=== PATIENT | female | born 1940 ===

== ENCOUNTER 2023-04-12 14:48 | Inpatient (IN) | payer MEDICARE, MEDICAID, SELFPAY ==
[2023-04-12 14:56] VITALS: BP 136/74; PULSE 55; O2SAT 95
[2023-04-12 15:02] VITALS: BP 151/118; PULSE 116; RESP 16; TEMP 37.2; O2SAT 95; BMI 25.4
--- NOTE | 2023-04-12 15:03 | ED_ITS ---
HPI - Psych General Chief Complaint: Psychiatric Symptoms Stated Complaint: SECTION 12 FROM SNF Time Seen by Provider: 04/12/23 15:01 Source: patient, EMS, RN notes reviewed and old records reviewed Mode of arrival: EMS Limitations: other History of Present Illness HPI Narrative: 82-year-old female with a past medical history of hypertension, diabetes, schizoaffective disorder presenting to the ED via EMS from SNF on Section 12 for increased paranoia, medication noncompliance, delusions, and agitation. Per Sec tion 12 patient recently diagnosed with UTI, has been refusing antibiotic, refusing to eat and drink, pacing, insomnia, and thinks staff is trying to kill her. Per EMS patient also with recent fall, had katrina placed to scalp, denies recent falls. History limited due to patient's acute mental status. Related Data Allergies Allergy/AdvReac Type Severity Reaction Status Date / Time latex Allergy Unknown Verified 04/12/23 15:01 Sulfa (Sulfonamide Allergy Unknown Verified 04/12/23 15:01 Antibiotics) Review of Systems Review of Systems: ROS limited due to patient's acute mental status Yes all other systems are reviewed and are negative Constitutional: Constitutional: Reports as per HPI [facility] Past Medical History Attestation statement: The following information was validated with the patient. 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, unspecified Generalized muscle weakness Hyperlipidemia Hypertension Insomnia correction (current) use of insulin Need for assistance with personal care Schizophrenia, unspecified Type 2 diabetes mellitus Unspecified dementia, mild, with anxiety Unspecified dementia, severe, with psychotic disturbance Vitamin D deficiency Social History Social History Advance Directives: Yes Advance Directives Information Provided: No Advance Directives on File: No Physical Exam Vital Signs: Vital Signs: Last Vital Signs Temp 99 F 04/12/23 15:02 Pulse 116 H 04/12/23 15:02 Resp 16 04/12/23 15:02 BP 151/118 H 04/12/23 15:02 Pulse Ox 95 04/12/23 15:02 O2 Del Method Room Air 04/12/23 15:02 BMI result Body Mass Index 25.4 Const: General: cooperative, no acute distress and alert Orientation/consciousness: oriented to person and oriented to place HEENT: Other: Healing laceration to posterior scalp with 1 stable intact, healing appropriately, no surrounding erythema, fluctuance or induration Head: Yes normal to inspection and Yes atraumatic Ears: hearing grossly normal bilaterally General nose exam: Normal external nose present Face and sinus: Yes normal facial exam Eyes: General: appearance normal, both eyes and all related structures Pupils: Equal, round and reactive pupils present EOM: EOMs intact bilaterally Neck: Neck: Yes normal visual inspection and Yes no meningeal signs Resp: Effort & Inspection: normal respiratory effort and no respiratory distress Auscultation: clear to auscultation bilaterally Cardio: Rate: regular rate Heart sounds: S1 normal heart sound present and S2 normal heart sound present GI: Inspection: Yes normal to inspection Palpation (GI): Soft to palpation, nontender, no guarding and not rigid Skin: Rashes: no rashes Wounds: no wounds Neuro: General: oriented to person, oriented to place, tone normal, moves all extremities, no meningeal signs and CN's II-XI intact bilaterally Cranial nerves: Yes Equal, round and reactive pupils present Gait exam (Neuro): Normal gait present Extrem: General: Yes normal to inspection Psych: Other: Pacing Affect: Anxious affect present Attitude: Guarded attititude/behavior present Thought content: Paranoid delusions present and delusions Insight: Poor insight present (Psych) Judgement: Poor judgement present (Psych) Course Course Course Narrative: -leukocytosis of 11.4. BUN of 35, no available priors to compare > will encourage p.o. intake. Labs otherwise reassuring -1630--ED care transferred to FRANCIS Tapia pending UA and CARE team consult Medical Decision Making Medical Decision Making MDM Narrative: 82-year-old female with a past medical history of hypertension, diabetes, schizoaffective disorder presenting to the ED via EMS from SNF on Section 12 for increased paranoia, medication noncompliance, delusions, and agitation. On exam hypertensive, tachycardic, pacing, agitated/guarded and paranoid. Physical exam as above with stable intact to posterior scalp wound which is appropriately healing. Low suspicion for severe sepsis, vital sign abnormalities likely from medication noncompliance/increased agitation. Rule out metabolic infectious etiologies Plan: Labs, UA, tox screen, CARE team consult Please refer to course for remaining clinical decision making, interpretation of labs/imaging results, and discussions with consultants and/or family members. Differential Diagnosis Differential Diagnoses: The differential diagnosis associated with the presentation includes As above Admission/Observation Consideration of admission/observation: Escalation of care including admission/observation considered Consult Healthcare Provider Management of the patient was discussed with: Behavioral Health Provider Lab Data [facility] Lab Attestation statement: I reviewed the patient's lab results. 04/12/23 15:40 04/12/23 15:40 Labs: Lab Results 04/12/23 04/12/23 04/12/23 Range/Units 15:40 15:40 15:40 WBC 11.4 H (4.8-10.8) X10*3/uL RBC 4.26 (4.20-5.50) X10*6/uL Hgb 12.9 (12.0-16.0) g/dl Hct 39.7 (37.0-47.0) % MCV 93.2 (80.0-98.0) fL MCH 30.3 (27.0-33.0) pg MCHC 32.5 (31.0-35.0) g/dl RDW 13.3 (11.0-16.0) % Plt Count 223 (160-400) X10*3/uL MPV 9.9 (9.4-12.3) fL Immature Gran % (Auto) 0.3 (0.0-0.4) % Neut % (Auto) 72.7 (45-73) % Lymph % (Auto) 14.9 L (20-40) % [place] % (Auto) 11.6 H (2-11) % Eos % (Auto) 0.1 (0-4) % Baso % (Auto) 0.4 (0-2) % Lymph # (Auto) 1.7 (1.2-4.9) X10*3/uL [place] # (Auto) 1.3 H (0.1-1.2) X10*3/uL Eos # (Auto) 0.0 (0.0-0.4) X10*3/uL Baso # (Auto) 0.0 (0.0-0.2) X10*3/uL Abs Immat Gran (auto) 0.03 (0.00-0.03) X10*3/uL Absolute Neuts (auto) 8.3 (2.0-8.3) x10*3/uL Absolute Nucleated RBC 0.000 (0.0-0.012) X10*3/uL Nucleated RBC % (auto) 0.0 (0.0-0.2) /100WBC Sodium 143 (135-145) mmol/L Potassium 4.6 (3.3-5.1) mmol/L Chloride 110 H (96-108) mmol/L Carbon Dioxide 20 L (22-29) mmol/L Anion Gap 18 (12-20) BUN 35 H (9-16) mg/dL Creatinine 1.38 (0.5-1.4) mg/dL Estim Creat Clear Calc 26.1 Estimated GFR 37 Random Glucose 165 H (60-115) mg/dL Calcium 10.4 H (8.4-10.2) mg/dL Magnesium 2.1 (1.6-2.6) mg/dL Total Bilirubin 1.1 H (0.0-1.0) mg/dL Direct Bilirubin 0.3 (0.0-0.5) mg/dL AST 55 H (5-31) U/L ALT 17 (0-31) U/L Alkaline Phosphatase 66 (39-117) U/L Total Protein 7.7 (6.5-8.0) g/dL Albumin 4.4 (3.5-5.0) g/dL COVID-19 (BEST) Negative (Negative) COVID-19 Clin Com See Note Radiology Impression Discussion of test interpretation with radiology: I have reviewed the radiologist's reading. Independent Historian Clinical information obtained from an independent historian. History obtained from or confirmed by: EMS and Other (Section 12 paperwork/SNF) External Record Review External record reviewed: Inpatient record, Office record, Outpatient record, Prior outpatient labs, Prior outpatient radiology, Primary care record and Outside ED record Tests considered The following testing was considered but not selected: As above Prescription Management I considered prescription management with: Antibiotic Chronic Conditions Patient?s care impacted by: Other (Schizoaffective) Discharge Plan Discharge Clinical Impression: Acute psychosis Patient Disposition: Still a Patient Interventions: [place]-Suicide Risk Severity Scale Last Done: 04/12/23 15:23
[2023-04-12 15:50] LABS: MANUAL DIFF FLAG NO
[2023-04-12 15:57] LABS: Basophils Percent Auto 0.4 % (0-2); Eosinophils Percent Auto 0.1 % (0-4); Hematocrit 39.7 % (37.0-47.0); Hemoglobin 12.9 g/dl (12.0-16.0); Imm Gran Abs Auto 0.03 X10*3/uL (0.00-0.03); Imm Gran Pct Auto 0.3 % (0.0-0.4); Lymphocytes Absolute Auto 1.7 X10*3/uL (1.2-4.9); Lymphocytes Percent Auto 14.9 % (20-40); Mean Corpuscular HGB Conc 32.5 g/dl (31.0-35.0); Mean Corpuscular Hemoglobin 30.3 pg (27.0-33.0); Mean Corpuscular Volume 93.2 fL (80.0-98.0); Mean Platelet Volume 9.9 fL (9.4-12.3); Monocytes Absolute Auto 1.3 X10*3/uL (0.1-1.2); Monocytes Percent Auto 11.6 % (2-11); Neutrophils Absolute Auto 8.3 x10*3/uL (2.0-8.3); Neutrophils Percent Auto 72.7 % (45-73); Platelet Count 223 X10*3/uL (160-400); Red Blood Count 4.26 X10*6/uL (4.20-5.50); Red Cell Distribution Width 13.3 % (11.0-16.0); White Blood Count 11.4 X10*3/uL (4.8-10.8)
[2023-04-12 16:05] LABS: Alanine Aminotransferase 17 U/L (0-31); Albumin Level 4.4 g/dL (3.5-5.0); Alkaline Phosphatase 66 U/L (39-117); Anion Gap 18 (12-20); Aspartate Amino Transferase 55 U/L (5-31); Bilirubin Direct 0.3 mg/dL (0.0-0.5); Bilirubin Total 1.1 mg/dL (0.0-1.0); Blood Urea Nitrogen 35 mg/dL (9-16); Calcium 10.4 mg/dL (8.4-10.2); Carbon Dioxide 20 mmol/L (22-29); Chloride 110 mmol/L (96-108); Creatinine Clr Calc Pharmacy 26.1; Estimated Glomerular Filt Rate 37; Glucose Random 165 mg/dL (60-115); Magnesium 2.1 mg/dL (1.6-2.6); Potassium 4.6 mmol/L (3.3-5.1); Sodium 143 mmol/L (135-145); Total Protein 7.7 g/dL (6.5-8.0)
[2023-04-12 16:06] LABS: IDNOW Serial# BCCEAD1C
[2023-04-12 16:07] LABS: COVID-19 Test Negative (Negative)
--- NOTE | 2023-04-12 16:41 | PC.NURSE ---
PT REQUIRING FREQUENT REMINIDING, ENCOURAGEMENT TO DRINK FLUIDS. CONTINUES TO PACE QUIETLY.
--- NOTE | 2023-04-12 16:51 | PHA.MEDREC ---
Pharmacy Consult ? Medication Reconciliation Pharmacy has completed the medication reconciliation. Patient came from [facility] with a medication list. Erika Giraldo, MaritaD
[2023-04-12 20:26] LABS: Appearance Urine Cloudy; Color Urine Dark Yellow; Glucose Urine UA Negative (Negative); Leukocyte Esterase Urine Large (3+) (Negative); Nitrite Urine Negative (Negative); PH 5.5 (5.0-9.0); Specific Gravity - Urine 1.025 (1.005-1.025); UMIC TRIGGER UACC YES; Urine Blood Negative (Negative); Urine Ketones Trace mg/dL (Negative); Urine Protein 30 (1+) mg/dL (Neg-Trace)
[2023-04-12 20:36] LABS: Amphetamine Screen Urine Not Detected (Not Detect); Barbiturates, Urine Not Detected (Not Detect); Benzodiazepines Screen Urine Not Detected (Not Detect); Cannabinoid Screen Urine Not Detected (Not Detect); Cocaine Screen Urine Not Detected (Not Detect); Opiate Screen Urine Not Detected (Not Detect); Phencyclidine Screen Urine Not Detected (Not Detect)
[2023-04-12 20:40] LABS: Fentanyl, urine Not Detected (Not Detect)
[2023-04-12 20:46] LABS: Bacteria Urine Trace (None Seen); UACC Culture Trigger YES; WBC Urine >50 /HPF (0-5)
[2023-04-12] MEDS: clonazePAM 0.5 MG TABLET PO (21:43)
[2023-04-12] MEDS: Divalproex Sodium 250 MG TABLET.DR PO (21:43)
[2023-04-12] MEDS: cephALEXin 500 MG CAPSULE PO ×2 (21:43→22:03)
[2023-04-12] MEDS: traZODone HCL 50 MG TABLET 150 MG PO ×2 (21:43→22:03)
[2023-04-12] MEDS: QUEtiapine Fumarate 50 MG TABLET 150 MG PO ×2 (21:43→22:02)
[2023-04-12] MEDS: lamoTRIgine 25 MG TABLET 75 MG PO ×2 (21:43→22:03)
[2023-04-12 21:55] LABS: Glucose, Whole Blood 156 mg/dL (60-115)
[2023-04-12] MEDS: Pravastatin Sodium 40 MG TABLET PO (22:02)
[2023-04-12 22:17] VITALS: BP 158/97; PULSE 118; RESP 22; TEMP 36.4; O2SAT 96
[2023-04-12] MEDS: Insulin Glargine,Hum.rec.anlog 100 UNIT/ML 10 ML VIAL 6 UNIT SUBCUT (22:17)
[2023-04-13 00:02] VITALS: BP 154/86; PULSE 109; RESP 15; TEMP 36.4; O2SAT 98
--- NOTE | 2023-04-13 06:25 | PC.NURSE ---
Patient up whole night sat in hallway chair, no distress observed/reported, behavior non concerning, hypo-verbal, medication compliant but needs queuing, POC at 2149 was 156 scheduled Lantus 6 units administered as ordered, Patient + UTI being treated with Keflex 500 mg QID, gait slow and unsteady, patient was seen by care team, disposition pending psych consult, will continue to monitor.
[2023-04-13 07:32] VITALS: BP 127/77; PULSE 100; RESP 20; TEMP 36.3; O2SAT 97
--- NOTE | 2023-04-13 07:59 | ECG_ITS ---
Test Reason : over 50 Blood Pressure : / mmHG Vent. Rate : 105 BPM Atrial Rate : 105 BPM P-R Int : 138 ms QRS Dur : 090 ms QT Int : 370 ms P-R-T Axes : 016 -40 098 degrees QTc Int : 489 ms Sinus tachycardia with occasional Premature ventricular complexes Left axis deviation Left ventricular hypertrophy with repolarization abnormality ( R in aVL , [place] product ) Abnormal ECG No previous ECGs available Referred By: Jordan Reddy Electronically Signed By:Bryce Mccoy
--- NOTE | 2023-04-13 08:26 | MHC.EDTECH ---
staff have asked pt multiple times this morning if willing to change brief, pt refused all those times. staff have educated pt on the importance of proper hygiene, pt still continues to refuse corinne care. rn aware.
--- NOTE | 2023-04-13 08:39 | PC.NURSE ---
Physician Obs. status ordered
--- NOTE | 2023-04-13 08:46 | PC.NURSE ---
Per pt.'s MAR documentation, pt.'s 04/12/23 2100 doses of Metoprolol, Quetiapine, and Lamotrigine were documented incorrectly under the 04/13/23 0900 doses of those same medications.
[2023-04-13] MEDS: cephALEXin 500 MG CAPSULE PO ×4 (08:52→20:51)
[2023-04-13] MEDS: diphenhydrAMINE HCl 12.5 MG/5 ML LIQUID PO ×2 (08:52→16:56)
[2023-04-13] MEDS: Cholecalciferol (Vitamin D3) 25 MCG TABLET PO (08:53)
[2023-04-13] MEDS: Metoprolol Succinate ER 25 MG TAB.ER.24H PO (08:53)
[2023-04-13] MEDS: QUEtiapine Fumarate 50 MG TABLET 150 MG PO ×2 (08:54→20:51)
[2023-04-13] MEDS: lamoTRIgine 25 MG TABLET 75 MG PO (08:55)
[2023-04-13 09:55] LABS: Ammonia 34 umol/L (13-55)
[2023-04-13] MEDS: 0.9 % Sodium Chloride 500 ML IV (12:12)
--- NOTE | 2023-04-13 12:25 | PM.PSYCN ---
History of Present Illness Date of Service: 04/13/2023 Chief Complaint: SECTION 12 FROM SNF Reason for Consult: agitation and paranoid Requesting physician: Jordan Reddy Discussed with referring provider: Yes Sources of Information: patient interviewed, chart reviewed and crisis/core team assessment reviewed Additional Sources of Information: HCP invoked- Joy daughter. Jt in the chart- pt is DNR/DNI. HPI Narrative: Mrs. Gandara is a 82 year-old with hx of schizophrenia and dementia who lives in SNF [place] brought to [facility] on section 12a due to increase agitation paranoid towards staff thinking that they are poisoning her, refusing to eat and take medications. In the ED, cbc with slightly elevated WBC 11. CMP with elevation of BUN 35, Cr 1.38. Slight elevation of AST. UA does show infection she is on Cephalexin 500mg po QID. Utox is negative. Pt seen in the ED. She is not eating minimal fluid intake but has taken medications since she has been on the unit. Pt mostly mute. Pt upset for being here but not oriented to place, situation. Not providing much information. Significant delayed in response rate. Collateral information gathered from the mother who reports pt has long hx of schizophrenia since 1973 and usually theme of paranoid delusions of being poisoned. Daughter reports currently pt presenting with usual exacerbation of psychiatric illness. Past Psychiatric History: Inpt: multiple in the past. OP: through [place] SNF. Past medication trials: olanzapine (became more confused and over sedated), seroquel, depakote. 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, unspecified Generalized muscle weakness Hyperlipidemia Hypertension Insomnia detention (current) use of insulin Need for assistance with personal care Schizophrenia, unspecified Type 2 diabetes mellitus Unspecified dementia, mild, with anxiety Unspecified dementia, severe, with psychotic disturbance Vitamin D deficiency Diagnostics Vital Signs (24Hr): Vital Signs - 24 hr 04/12/23 15:02 04/12/23 22:17 04/13/23 00:02 Temperature 99 F 97.5 F 97.5 F Pulse Rate 116 H 118 H 109 H Respiratory Rate 16 22 H 15 Blood Pressure 151/118 H 158/97 H 154/86 H Pulse Oximetry 95 96 98 Oxygen Delivery Method Room Air Room Air Room Air 04/13/23 07:32 Temperature 97.3 F Pulse Rate 100 Respiratory Rate 20 Blood Pressure 127/77 Pulse Oximetry 97 Oxygen Delivery Method Room Air BMI result Body Mass Index 25.4 Labs 04/12/23 15:40 04/12/23 15:40 Labs: Laboratory Results - last 48 hr 04/12/23 04/12/23 04/12/23 15:40 15:40 15:40 WBC 11.4 H RBC 4.26 Hgb 12.9 Hct 39.7 MCV 93.2 MCH 30.3 MCHC 32.5 RDW 13.3 Plt Count 223 MPV 9.9 Immature Gran % (Auto) 0.3 Neut % (Auto) 72.7 Lymph % (Auto) 14.9 L [place] % (Auto) 11.6 H Eos % (Auto) 0.1 Baso % (Auto) 0.4 Lymph # (Auto) 1.7 [place] # (Auto) 1.3 H Eos # (Auto) 0.0 Baso # (Auto) 0.0 Abs Immat Gran (auto) 0.03 Absolute Neuts (auto) 8.3 Absolute Nucleated RBC 0.000 Nucleated RBC % (auto) 0.0 Sodium 143 Potassium 4.6 Chloride 110 H Carbon Dioxide 20 L Anion Gap 18 BUN 35 H Creatinine 1.38 Estim Creat Clear Calc 26.1 Estimated GFR 37 POC Glucose Random Glucose 165 H Calcium 10.4 H Magnesium 2.1 Total Bilirubin 1.1 H Direct Bilirubin 0.3 AST 55 H ALT 17 Alkaline Phosphatase 66 Ammonia Total Protein 7.7 Albumin 4.4 Urine Color Urine Appearance Urine pH Ur Specific [place] Urine Protein Urine Glucose (UA) Urine Ketones Urine Blood Urine Nitrite Ur Leukocyte Esterase Urine RBC Urine WBC Ur Squamous Epith Cells Urine Bacteria Hyaline Casts Urine Opiates Screen Urine Fentanyl Screen Ur Barbiturates Screen Ur Phencyclidine Scrn Ur Amphetamines Screen U Benzodiazepines Scrn Urine Cocaine Screen U Marijuana (THC) Screen COVID-19 (BEST) Negative COVID-19 Clin Com See Note 04/12/23 04/12/23 04/12/23 20:16 20:16 21:49 WBC RBC Hgb Hct MCV MCH MCHC RDW Plt Count MPV Immature Gran % (Auto) Neut % (Auto) Lymph % (Auto) [place] % (Auto) Eos % (Auto) Baso % (Auto) Lymph # (Auto) [place] # (Auto) Eos # (Auto) Baso # (Auto) Abs Immat Gran (auto) Absolute Neuts (auto) Absolute Nucleated RBC Nucleated RBC % (auto) Sodium Potassium Chloride Carbon Dioxide Anion Gap BUN Creatinine Estim Creat Clear Calc Estimated GFR POC Glucose 156 H Random Glucose Calcium Magnesium Total Bilirubin Direct Bilirubin AST ALT Alkaline Phosphatase [place] Total Protein Albumin Urine Color Dark Yellow Urine Appearance Cloudy Urine pH 5.5 Ur Specific [place] 1.025 Urine Protein 30 (1+) H Urine Glucose (UA) Negative Urine Ketones Trace Urine Blood Negative Urine Nitrite Negative Ur Leukocyte Esterase Large (3+) H Urine RBC 6-10 H Urine WBC >50 H Ur Squamous Epith Cells 3-5 Urine Bacteria Trace Hyaline Casts 3-5 Urine Opiates Screen Not Detected Urine Fentanyl Screen Not Detected Ur Barbiturates Screen Not Detected Ur Phencyclidine Scrn Not Detected Ur Amphetamines Screen Not Detected U Benzodiazepines Scrn Not Detected Urine Cocaine Screen Not Detected U Marijuana (THC) Screen Not Detected COVID-19 (BEST) COVID-19 Clin Com 04/13/23 09:38 WBC RBC Hgb Hct MCV MCH MCHC RDW Plt Count MPV Immature Gran % (Auto) Neut % (Auto) Lymph % (Auto) [place] % (Auto) Eos % (Auto) Baso % (Auto) Lymph # (Auto) [place] # (Auto) Eos # (Auto) Baso # (Auto) Abs Immat Gran (auto) Absolute Neuts (auto) Absolute Nucleated RBC Nucleated RBC % (auto) Sodium Potassium Chloride Carbon Dioxide Anion Gap BUN Creatinine Estim Creat Clear Calc Estimated GFR POC Glucose Random Glucose Calcium Magnesium Total Bilirubin Direct Bilirubin AST ALT Alkaline Phosphatase [place] 34 Total Protein Albumin Urine Color Urine Appearance Urine pH Ur Specific [place] Urine Protein Urine Glucose (UA) Urine Ketones Urine Blood Urine Nitrite Ur Leukocyte Esterase Urine RBC Urine WBC Ur Squamous Epith Cells Urine Bacteria Hyaline Casts Urine Opiates Screen Urine Fentanyl Screen Ur Barbiturates Screen Ur Phencyclidine Scrn Ur Amphetamines Screen U Benzodiazepines Scrn Urine Cocaine Screen U Marijuana (THC) Screen COVID-19 (BEST) COVID-19 Clin Com Mental Status Exam Mental Status Exam Narrative: Pt mostly mute, speech not spontaneous, with delayed response. Alert, has not slept in several day. MInimal oral intake but has taken medications. Appears internally preoccupied. Assessment limited due to patient being mute. Insight/judgment: impaired x2. Medications Medications Current Medications Acetaminophen (Acetaminophen 325 Mg Tablet) 650 mg PO Q4H PRN PRN Reason: PAIN OR FEVER Cephalexin HCl (Cephalexin 500 Mg Capsule) 500 mg PO QID [facility] Last Admin: 04/13/23 08:52 Dose: 500 mg Clonazepam (Clonazepam 0.5 Mg Tablet) 0.5 mg PO BEDTIME [facility] Last Admin: 04/12/23 22:03 Dose: 0.5 mg Diphenhydramine HCl (Diphenhydramine Hcl 12.5 Mg/5 Ml Liquid) 12.5 mg PO TID [facility] Last Admin: 04/13/23 08:52 Dose: 12.5 mg Divalproex Sodium (Divalproex Sodium 250 Mg Tablet.Dr) 250 mg PO BEDTIME [facility] Last Admin: 04/12/23 22:03 Dose: 250 mg Insulin Glargine (Insulin Glargine,Hum.Rec.Anlog 100 Unit/Ml 10 Ml Vial) 6 unit SUBCUT BEDTIME [facility] Last Admin: 04/12/23 22:17 Dose: 6 unit Lamotrigine (Lamotrigine 25 Mg Tablet) 75 mg PO BID [facility] Last Admin: 04/13/23 08:55 Dose: 75 mg Metoprolol Succinate (Metoprolol Succinate Er 25 Mg Tab.Er.24h) 25 mg PO DAILY [facility]; Protocol Last Admin: 04/13/23 08:53 Dose: 25 mg Pravastatin Sodium (Pravastatin Sodium 40 Mg Tablet) 40 mg PO BEDTIME [facility] Last Admin: 04/12/23 22:02 Dose: 40 mg Quetiapine Fumarate (Quetiapine Fumarate 50 Mg Tablet) 150 mg PO BID [facility] Last Admin: 04/13/23 08:54 Dose: 150 mg Simethicone (Simethicone 80 Mg Tab.Chew) 160 mg PO Q4H PRN PRN Reason: Dyspepsia Trazodone HCl (Trazodone Hcl 50 Mg Tablet) 150 mg PO BEDTIME [facility] Last Admin: 04/12/23 22:03 Dose: 150 mg Vitamin D (Cholecalciferol (Vitamin D3) 25 Mcg Tablet) 25 mcg PO DAILY [facility] Last Admin: 04/13/23 08:53 Dose: 25 mcg Allergies Allergies Allergy/AdvReac Type Severity Reaction Status Date / Time latex Allergy Unknown Verified 04/12/23 15:01 Sulfa (Sulfonamide Allergy Unknown Verified 04/12/23 15:01 Antibiotics) Assessment & Plan Assessment & Plan (1) Major 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 Gandara is a 82 year-old woman with hx of schizophrenia since 1973. Pt also with major neurocognitive disorder. She lives in SNF, brought on sect 12 due to pt presenting as increasingly more parnaoid, refusing food and medications, aggressive towards staff at SNF. She does have UTI but note that per daughter, this has been usual presentation of exacerbation of schizophrenia. She has not had any food or fluids. She has taken medications. PLAN 1. Need inpatient level of care for safety, containment and stabilization. Pt appears gravely disable due to underlying paranoid and psychosis. 2. continue current medication, except for benadryl TID as it may worsened confusion. Total time managing care of this patient today ____ minutes.
[2023-04-13] MEDS: LORazepam 1 MG TABLET PO (12:33)
--- NOTE | 2023-04-13 16:54 | MHC.EDTECH ---
After a long time of persuading the patient to clean change her brief, staff was allow to to change her around 12:30 P.M. Also, clean her whole body with the help of two staff.
--- NOTE | 2023-04-13 20:32 | PC.NURSE ---
Per tech report patient ate 75% of her supper.
[2023-04-13] MEDS: traZODone HCL 50 MG TABLET 150 MG PO (20:51)
[2023-04-13 21:19] LABS: Glucose, Whole Blood 168 mg/dL (60-115)
--- NOTE | 2023-04-14 05:48 | PC.NURSE ---
Patient slept through whole night, no distress observed/reported, behavior non concerning, hypo-verbal, Patient couldn't stay awake for her medication took few meds including keflex and klonopin, POC at 2109 was 168 scheduled Lantus not administered due to drowsiness provider made aware and okayed to hold for the night, gait slow and unsteady, patient was seen by care team, disposition per care team section 12 inpatient bed search, will continue to monitor.
[2023-04-14] MEDS: Cholecalciferol (Vitamin D3) 25 MCG TABLET PO (11:02)
[2023-04-14] MEDS: lamoTRIgine 25 MG TABLET 75 MG PO ×2 (11:02→22:17)
[2023-04-14] MEDS: diphenhydrAMINE HCl 12.5 MG/5 ML LIQUID PO (11:02)
[2023-04-14] MEDS: cephALEXin 500 MG CAPSULE PO ×3 (11:02→22:15)
[2023-04-14] MEDS: Metoprolol Succinate ER 25 MG TAB.ER.24H PO (11:02)
[2023-04-14] MEDS: QUEtiapine Fumarate 50 MG TABLET 150 MG PO ×2 (11:02→22:18)
[2023-04-14 11:08] VITALS: BP 139/64; PULSE 77; RESP 17; TEMP 36.3; O2SAT 99
--- NOTE | 2023-04-14 11:50 | PC.NURSE ---
Patient speaking with daughter on phone.
--- NOTE | 2023-04-14 15:48 | PC.NURSE ---
Report given to S1, nurse will come and assist patient to unit. Patient informed that she will be getting admitted. Patient at this time fearful and not very interactive.
--- NOTE | 2023-04-14 16:14 | P.HPPS_ITS ---
HPI Date of Service: 04/14/23 Chief Complaint: paranoid, not eating Sources of Information: patient interviewed, chart reviewed and crisis/core team assessment reviewed HPI Subjective Notes: Section 12B Healthcare Proxy: Yes Narrative: Mrs. Gandara is a 82 year-old with hx of schizophrenia and dementia who lives i [facility] brought [place] [facility] on section 12a due to increase agitation paranoid towards staff thinking that they are poisoning her, refusing to eat and take medications. In the ED, cbc with slightly elevated WBC 11. CMP with elevation of BUN 35, Cr 1.38. Slight elevation of AST. UA does show infection she is on Cephalexin 500mg po QID. Utox is negative. On the unit, pt presents as more talkative. She reports she feels fine. She is able to tell that she is in the hospital. She reports she does not know why she was brought here. She denies suicidal or homicidal ideation. She continues to de clined food, stating she is not hungry. She has been taking medications mostly as prescribed. No behavioral concerns. Collateral information gathered from the mother who reports pt has long hx of schizophrenia since 1973 and usually theme of paranoid delusions of being poisoned. Daughter reports currently pt presenting with usual exacerbation of psychiatric illness. Past Psychiatric History: Inpt: multiple in the past. OP: through [facility]. Past medication trials: olanzapine (became more confused and over sedated), seroquel, depakote. 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 Need for assistance with personal care Schizophrenia, unspecified Type 2 diabetes mellitus Unspecified dementia, mild, with anxiety Unspecified dementia, severe, with psychotic disturbance Vitamin D deficiency Diagnostics Vital Signs (24Hr): Vital Signs - 24 hr 04/14/23 11:08 Temperature 97.4 F Pulse Rate 77 Respiratory Rate 17 Blood Pressure 139/64 Pulse Oximetry 99 Oxygen Delivery Method Room Air BMI result Body Mass Index 25.4 Labs 04/12/23 15:40 04/12/23 15:40 Labs: Laboratory Results - last 48 hr 04/12/23 04/12/23 04/12/23 20:16 20:16 21:49 POC Glucose 156 H Ammonia Urine Color Dark Yellow Urine Appearance Cloudy Urine pH 5.5 Ur Specific Rampart 1.025 Urine Protein 30 (1+) H Urine Glucose (UA) Negative Urine Ketones Trace Urine Blood Negative Urine Nitrite Negative Ur Leukocyte Esterase Large (3+) H Urine RBC 6-10 H Urine WBC >50 H Ur Squamous Epith Cells 3-5 Urine Bacteria Trace Hyaline Casts 3-5 Urine Opiates Screen Not Detected Urine Fentanyl Screen Not Detected Ur Barbiturates Screen Not Detected Ur Phencyclidine Scrn Not Detected Ur Amphetamines Screen Not Detected U Benzodiazepines Scrn Not Detected Urine Cocaine Screen Not Detected U Marijuana (THC) Screen Not Detected 04/13/23 04/13/23 09:38 21:10 POC Glucose 168 H Ammonia 34 Urine Color Urine Appearance Urine pH Ur Specific Rampart Urine Protein Urine Glucose (UA) Urine Ketones Urine Blood Urine Nitrite Ur Leukocyte Esterase Urine RBC Urine WBC Ur Squamous Epith Cells Urine Bacteria Hyaline Casts Urine Opiates Screen Urine Fentanyl Screen Ur Barbiturates Screen Ur Phencyclidine Scrn Ur Amphetamines Screen U Benzodiazepines Scrn Urine Cocaine Screen U Marijuana (THC) Screen Meds/Allergies Meds Home Medications Medication Instructions Recorded Confirmed Type Lactobacillus acidophilus 1 cap PO DAILY 04/12/23 04/12/23 History acetaminophen 325 mg tablet 650 mg PO Q4H PRN PAIN OR FEVER 04/12/23 04/12/23 History cephalexin 500 mg capsule 500 mg PO QID 04/12/23 04/12/23 History cholecalciferol (vitamin D3) 25 25 mcg PO DAILY 04/12/23 04/12/23 History mcg (1,000 unit) tablet clonazepam 0.5 mg tablet 0.5 mg PO BEDTIME 04/12/23 04/12/23 History diphenhydramine HCl 25 mg tablet 12.5 mg PO TID 04/12/23 04/12/23 History divalproex 250 mg tablet,delayed 250 mg PO BEDTIME 04/12/23 04/12/23 History release (Depakote) insulin glargine 100 unit/mL (3 6 unit subcut BEDTIME 04/12/23 04/12/23 History mL) subcutaneous pen (Kishore Zhu U-100 Insulin) lamotrigine 150 mg tablet 75 mg PO BID 04/12/23 04/12/23 History metoprolol succinate 25 mg 25 mg PO DAILY 04/12/23 04/12/23 History tablet,extended release 24 hr pravastatin 40 mg tablet 40 mg PO BEDTIME 04/12/23 04/12/23 History quetiapine 50 mg tablet 150 mg PO BID 04/12/23 04/12/23 History simethicone 50 mg/5 mL oral 300 mg PO Q4H PRN Dyspepsia 04/12/23 04/12/23 History suspension trazodone 150 mg tablet 150 mg PO BEDTIME 04/12/23 04/12/23 History Allergies Allergies Allergy/AdvReac Type Severity Reaction Status Date / Time latex Allergy Unknown Verified 04/12/23 15:01 Sulfa (Sulfonamide Allergy Unknown Verified 04/12/23 15:01 Antibiotics) Mental Status Exam Mental Status Exam Narrative: Appearance: casually groomed, good hygiene, in NAD behavior: guarded, superficially cooperative Psychomotor: less retardation Speech: clear, less delayed in response rate, more spontaneous TP: single word answers TC: suspicious, wanting to leave hospital Mood: fine Affect: guarded, suspicious Si: denies HI: denies VH/AH: denies Insight/judgment: poor x 2. Memory/cog: alert, oriented to place, not situation. Pending MOCA Assessment & Plan Assessment & Plan (1) Schizophrenia, unspecified: Status: Acute Code(s): F20.9 - Schizophrenia, unspecified (2) Major 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 Gandara is a 82 yearold woman with hx of schizophrenia since 1973, also with major Neurocognitive Disorder who resides at [facility] and was sent on sect 12 due to pt refusing to eat and take medication, combative towards staff due to paranoid delusions thinking staff were trying to kill her. In the ED, pt mostly mute, taking most medication but with limited oral intake. Pt received IV fluids . On the unit, more talkative, no overt delusional content reported but presents as paranoid, guarded. PLAN 1. Admit to S1, sect 12b, 15 minutes checks for safety 2. continue current medications including combination of depakote with seroquel. 3. obtain collateral information 4. Aftercare planning. Patient educated on: diagnosis and medication risk/benefits Guardian/Caregiver educated on: diagnosis and medication risk/benefits Informed Consent: understands Reason for continued inpatient stay Substantial Risk for: inability to function Statement Statement: I have reviewed the history and physical and performed a pertinent examination on my patient. No changes have occurred unless specified. If the History and Physical was not performed prior to admission, the Hospitalist's service will be consulted for completing the admission physical. Time Spent With Patient Time: Total time managing care of this patient today ____ minutes.
--- NOTE | 2023-04-14 16:17 | PC.NURSE ---
HCP invoked [facility] [phone]
[2023-04-14 16:56] VITALS: BP 145/66; PULSE 68; RESP 16; TEMP 36.4; O2SAT 90
--- NOTE | 2023-04-14 17:55 | PC.ADMIT ---
Anna was admitted to S1 at 16:30 from the Pod on 12b for treatment of schizophrenia, bipolar type and Dementia. Patient comes with a UTI. According to crisis evaluation patient has been refusing antibiotics for UTI.? Precipitants of admission include patient stopped taking her meds and believes that the staff at her SNF are trying to kill her. Patient has not been attending to ADLs.? Patient did not participate in admission process and it was completed via the crisis assessment. Patient is alert and oriented x3. Mood is depressed with a congruent affect. Patient has a distant gaze, and appears internally preoccupied. Does not appear to be responding to internal stimuli at this time.? Patient denies SI/HI/AH/VH. Has paranoia surrounding the SNF and believes they are trying to kill her. Thought process appears disorganized. Per crisis patient has not ate in 3 oor more days due to believing staff is poisoning her food. Sleep is poor as well. Per daughter she will sleep during the day and stay up all night.? Medical issues : HTN, Hyperlipidemia, CKD stage II, Type 2 DM. Per crisis wesly reported that patient has a fall on 04/10/2023 at 0400 at her SNF.? 5 minute checks initiated per policy.? Daughter Joy is invoked [facility] [phone]. SNF is [facility] [phone].
[2023-04-14 22:11] LABS: Glucose, Whole Blood 126 mg/dL (60-115)
[2023-04-14] MEDS: clonazePAM 0.5 MG TABLET PO (22:15)
[2023-04-14] MEDS: Divalproex Sodium 250 MG TABLET.DR PO (22:16)
[2023-04-14] MEDS: Insulin Glargine,Hum.rec.anlog 100 UNIT/ML 10 ML VIAL 6 UNIT SUBCUT (22:16)
[2023-04-14] MEDS: Pravastatin Sodium 40 MG TABLET PO (22:17)
[2023-04-14] MEDS: traZODone HCL 50 MG TABLET 150 MG PO (22:18)
[2023-04-15 08:03] LABS: Glucose, Whole Blood 106 mg/dL (60-115)
[2023-04-15 08:20] VITALS: BP 132/58; PULSE 82; RESP 16; TEMP 36.4; O2SAT 96
[2023-04-15] MEDS: QUEtiapine Fumarate 50 MG TABLET 150 MG PO ×2 (08:56→20:43)
[2023-04-15] MEDS: Metoprolol Succinate ER 25 MG TAB.ER.24H PO (08:56)
[2023-04-15] MEDS: lamoTRIgine 25 MG TABLET 75 MG PO ×2 (08:57→20:42)
[2023-04-15] MEDS: Cholecalciferol (Vitamin D3) 25 MCG TABLET PO (08:57)
[2023-04-15] MEDS: cephALEXin 500 MG CAPSULE PO ×4 (08:57→20:43)
[2023-04-15 09:35] LABS: Estimated Average Glucose 126 mg/dL
[2023-04-15 09:51] LABS: Alanine Aminotransferase 16 U/L (0-31); Albumin Level 3.3 g/dL (3.5-5.0); Alkaline Phosphatase 50 U/L (39-117); Anion Gap 13 (12-20); Aspartate Amino Transferase 30 U/L (5-31); Bilirubin Total 0.6 mg/dL (0.0-1.0); Blood Urea Nitrogen 19 mg/dL (9-16); Calcium 9.4 mg/dL (8.4-10.2); Carbon Dioxide 27 mmol/L (22-29); Chloride 108 mmol/L (96-108); Cholesterol 141 mg/dL; Creatinine Clr Calc Pharmacy 43.9; Estimated Glomerular Filt Rate > 60; Glucose Fasting 99 mg/dL (60-99); HDL Cholesterol 40 mg/dL; LDL Cholesterol Calculated 83 mg/dl; Potassium 3.8 mmol/L (3.3-5.1); Sodium 144 mmol/L (135-145); Total Protein 6.1 g/dL (6.5-8.0); Triglycerides 90 mg/dL
[2023-04-15 10:06] LABS: Thyroid Stimulating Hormone 1.09 uIU/mL (0.32-4.0)
[2023-04-15 10:23] LABS: Folate 13.5 ng/mL (> or = 4.0); Vitamin B12 423 pg/mL (200-900)
--- NOTE | 2023-04-15 16:17 | HO.PSYCHPN ---
Subjective Subjective Date of Service: 04/15/23 Reason For Visit: paranoid, not eating Subjective Notes: Section 12B Interim History: Pt guarded, mostly in her room. she continues to decline most oral intake. She reports I'm not hungry. Pt appears internally preoccupied, less than in ED but not fully forthcoming with extend of delusional content. She denies SI/HI. She declined last night medications but this morning did take them. No behavioral concerns. Review of Systems Review of Systems ROS limited due to patient's acute mental status Yes all other systems are reviewed and are negative Constitutional: Reports as per HPI Mental Status Exam Mental Status Exam Narrative: Appearance: casually groomed, good hygiene, in NAD behavior: guarded, superficially cooperative Psychomotor: less retardation Speech: clear, less delayed in response rate, more spontaneous TP: single word answers TC: suspicious, wanting to leave hospital Mood: fine Affect: guarded, suspicious Si: denies HI: denies VH/AH: denies Insight/judgment: poor x 2. Memory/cog: alert, oriented to place, not situation. Pending MOCA Diagnostics Vital Signs (24Hr): Vital Signs - 24 hr 04/14/23 16:56 04/15/23 08:20 Temperature 97.6 F 97.6 F Pulse Rate 68 82 Respiratory Rate 16 16 Blood Pressure 145/66 H 132/58 L Pulse Oximetry 90 L 96 Oxygen Delivery Method Room Air Room Air BMI result Body Mass Index 25.4 Labs 04/12/23 15:40 04/15/23 08:23 Labs: Laboratory Results - last 48 hr 04/13/23 04/14/23 04/15/23 21:10 22:04 07:58 Sodium Potassium Chloride Carbon Dioxide Anion Gap BUN Creatinine Estim Creat Clear Calc Estimated GFR POC Glucose 168 H 126 H 106 Fasting Glucose Estimat Average Glucose Hemoglobin A1c % Calcium Total Bilirubin AST ALT Alkaline Phosphatase Total Protein Albumin Triglycerides Cholesterol LDL Cholesterol, Calc HDL Cholesterol Vitamin B12 Folate TSH 04/15/23 04/15/23 04/15/23 08:23 08:23 08:23 Sodium 144 Potassium 3.8 Chloride 108 Carbon Dioxide 27 Anion Gap 13 BUN 19 H Creatinine 0.82 Estim Creat Clear Calc 43.9 Estimated GFR > 60 POC Glucose Fasting Glucose 99 Estimat Average Glucose 126 Hemoglobin A1c % 6.0 Calcium 9.4 D Total Bilirubin 0.6 AST 30 ALT 16 Alkaline Phosphatase 50 Total Protein 6.1 L Albumin 3.3 L Triglycerides 90 Cholesterol 141 LDL Cholesterol, Calc 83 HDL Cholesterol 40 Vitamin B12 423 Folate 13.5 TSH 1.09 Medications Medications Current Medications Acetaminophen (Acetaminophen 325 Mg Tablet) 650 mg PO Q4H PRN PRN Reason: PAIN OR FEVER Al Hydroxide/Mg Hydroxide (Magnesium Hydrox/Alum Hydrox 30 Ml Oral.Susp) 30 ml PO Q6H PRN PRN Reason: Heartburn/Nausea Cephalexin HCl (Cephalexin 500 Mg Capsule) 500 mg PO QID [facility] Last Admin: 04/15/23 14:27 Dose: 500 mg Clonazepam (Clonazepam 0.5 Mg Tablet) 0.5 mg PO BEDTIME [facility] Last Admin: 04/14/23 22:26 Dose: Not Given Divalproex Sodium (Divalproex Sodium 250 Mg Tablet.Dr) 250 mg PO BEDTIME [facility] Last Admin: 04/14/23 22:27 Dose: Not Given Hydroxyzine HCl (Hydroxyzine Hcl 25 Mg Tablet) 25 mg PO Q6H PRN PRN Reason: Anxiety Insulin Glargine (Insulin Glargine,Hum.Rec.Anlog 100 Unit/Ml 10 Ml Vial) 6 unit SUBCUT BEDTIME [facility] Last Admin: 04/14/23 22:27 Dose: Not Given Lamotrigine (Lamotrigine 25 Mg Tablet) 75 mg PO BID [facility] Last Admin: 04/15/23 08:57 Dose: 75 mg Magnesium Hydroxide (Milk Of Magnesia 30 Ml Oral.Susp) 30 ml PO DAILY PRN PRN Reason: Constipation Metoprolol Succinate (Metoprolol Succinate Er 25 Mg Tab.Er.24h) 25 mg PO DAILY [facility]; Protocol Last Admin: 04/15/23 08:56 Dose: 25 mg Pravastatin Sodium (Pravastatin Sodium 40 Mg Tablet) 40 mg PO BEDTIME [facility] Last Admin: 04/14/23 22:28 Dose: Not Given Quetiapine Fumarate (Quetiapine Fumarate 50 Mg Tablet) 150 mg PO BID [facility] Last Admin: 04/15/23 08:56 Dose: 150 mg Simethicone (Simethicone 80 Mg Tab.Chew) 160 mg PO Q4H PRN PRN Reason: Dyspepsia Trazodone HCl (Trazodone Hcl 50 Mg Tablet) 150 mg PO BEDTIME [facility] Last Admin: 06/28/23 22:18 Dose: 150 mg Vitamin D (Cholecalciferol (Vitamin D3) 25 Mcg Tablet) 25 mcg PO DAILY [facility] Last Admin: 04/15/23 08:57 Dose: 25 mcg Allergies Allergies Allergy/AdvReac Type Severity Reaction Status Date / Time latex Allergy Unknown Verified 04/12/23 15:01 Sulfa (Sulfonamide Allergy Unknown Verified 04/12/23 15:01 Antibiotics) Assessment & Plan Assessment & Plan (1) Major 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 Gandara is a 82 year-old woman with hx of schizophrenia since 1973. Pt also with major neurocognitive disorder. She lives in SNF, brought on sect 12 due to pt presenting as increasingly more parnaoid, refusing food and medications, aggressive towards staff at SNF. She does have UTI but note that per daughter, this has been usual presentation of exacerbation of schizophrenia. She has not had any food or fluids. She has taken medications. PLAN 1. Need inpatient level of care for safety, containment and stabilization. Pt appears gravely disable due to underlying paranoid and psychosis. 2. continue current medication, except for benadryl TID as it may worsened confusion. 04/15- continue tx. monitor intake. labs this morning BUN decreased from 35 to 19. Reason for continued inpatient stay Substantial Risk for: inability to function Time Spent With Patient Time: Total time managing care of this patient today ____ minutes.
[2023-04-15 18:00] VITALS: BP 133/69; PULSE 81; RESP 18; TEMP 36.6; O2SAT 98
[2023-04-15 20:26] LABS: Glucose, Whole Blood 142 mg/dL (60-115)
[2023-04-15] MEDS: Insulin Glargine,Hum.rec.anlog 100 UNIT/ML 10 ML VIAL 6 UNIT SUBCUT (20:38)
[2023-04-15] MEDS: traZODone HCL 50 MG TABLET 150 MG PO (20:39)
[2023-04-15] MEDS: clonazePAM 0.5 MG TABLET PO (20:43)
[2023-04-15] MEDS: Divalproex Sodium 250 MG TABLET.DR PO (20:43)
[2023-04-15] MEDS: Pravastatin Sodium 40 MG TABLET PO (20:44)
[2023-04-16 08:05] LABS: Glucose, Whole Blood 146 mg/dL (60-115)
[2023-04-16 08:15] VITALS: BP 123/75; PULSE 113; RESP 18; TEMP 36; O2SAT 95
[2023-04-16] MEDS: Cholecalciferol (Vitamin D3) 25 MCG TABLET PO (08:34)
[2023-04-16] MEDS: QUEtiapine Fumarate 50 MG TABLET 150 MG PO ×2 (08:34→20:49)
[2023-04-16] MEDS: cephALEXin 500 MG CAPSULE PO ×4 (08:35→20:50)
[2023-04-16] MEDS: Metoprolol Succinate ER 25 MG TAB.ER.24H PO (08:35)
[2023-04-16] MEDS: lamoTRIgine 25 MG TABLET 75 MG PO ×2 (08:35→20:51)
--- NOTE | 2023-04-16 13:13 | HO.PSYCHPN ---
Subjective Subjective Date of Service: 04/16/23 Reason For Visit: paranoid, not eating Subjective Notes: Conditional Voluntary Interim History: Pt guarded but not aggressive or combative, mostly in her room. Yesterday, she ate 75% for lunch and 75% dinner. Pt in bed. She reports she is tired. She reports she is trying to rest. Somewhat guarded. She denies concerns of thinking that staff at [facility] were trying to hurt her/poisoned her. When asked if she wants to stay in hospital, she states no. However, when asked if she wants to return to [facility], she states I need to think about it. She denies SI/HI. No behavioral concerns. Pt not fully forthcoming with extend of delusions but much calmer and not combative, increase oral intake. Review of Systems Review of Systems ROS limited due to patient's acute mental status Yes all other systems are reviewed and are negative Constitutional: Reports as per [facility] Mental Status Exam Mental Status Exam Narrative: Appearance: casually groomed, good hygiene, in NAD behavior: guarded, superficially cooperative Psychomotor: less retardation Speech: clear, less delayed in response rate, more spontaneous TP: single word answers TC: suspicious, wanting to leave hospital Mood: fine Affect: guarded, suspicious Si: denies HI: denies VH/AH: denies Insight/judgment: poor x 2. Memory/cog: alert, oriented to place, not situation. Pending MOCA Diagnostics Vital Signs (24Hr): Vital Signs - 24 hr 04/15/23 18:00 04/16/23 08:15 Temperature 97.8 F 96.8 F Pulse Rate 81 113 H Respiratory Rate 18 18 Blood Pressure 133/69 123/75 Pulse Oximetry 98 95 Oxygen Delivery Method Room Air Room Air BMI result Body Mass Index 25.4 Labs 04/12/23 15:40 04/15/23 08:23 Labs: Laboratory Results - last 48 hr 04/14/23 04/15/23 04/15/23 22:04 07:58 08:23 Sodium 144 Potassium 3.8 Chloride 108 Carbon Dioxide 27 Anion Gap 13 BUN 19 H Creatinine 0.82 Estim Creat Clear Calc 43.9 Estimated GFR > 60 POC Glucose 126 H 106 Fasting Glucose 99 Estimat Average Glucose Hemoglobin A1c % Calcium 9.4 D Total Bilirubin 0.6 AST 30 ALT 16 Alkaline Phosphatase 50 Total Protein 6.1 L Albumin 3.3 L Triglycerides 90 Cholesterol 141 LDL Cholesterol, Calc 83 HDL Cholesterol 40 Vitamin B12 Folate TSH 1.09 04/15/23 04/15/23 04/15/23 08:23 08:23 20:22 Sodium Potassium Chloride Carbon Dioxide Anion Gap BUN Creatinine Estim Creat Clear Calc Estimated GFR POC Glucose 142 H Fasting Glucose Estimat Average Glucose 126 Hemoglobin A1c % 6.0 Calcium Total Bilirubin AST ALT Alkaline Phosphatase Total Protein Albumin Triglycerides Cholesterol LDL Cholesterol, Calc HDL Cholesterol Vitamin B12 423 Folate 13.5 TSH 04/16/23 08:01 Sodium Potassium Chloride Carbon Dioxide Anion Gap BUN Creatinine Estim Creat Clear Calc Estimated GFR POC Glucose 146 H Fasting Glucose Estimat Average Glucose Hemoglobin A1c % Calcium Total Bilirubin AST ALT Alkaline Phosphatase Total Protein Albumin Triglycerides Cholesterol LDL Cholesterol, Calc HDL Cholesterol Vitamin B12 Folate TSH Medications Medications Current Medications Acetaminophen (Acetaminophen 325 Mg Tablet) 650 mg PO Q4H PRN PRN Reason: PAIN OR FEVER Al Hydroxide/Mg Hydroxide (Magnesium Hydrox/Alum Hydrox 30 Ml Oral.Susp) 30 ml PO Q6H PRN PRN Reason: Heartburn/Nausea Cephalexin HCl (Cephalexin 500 Mg Capsule) 500 mg PO QID [facility] Last Admin: 04/16/23 12:07 Dose: 500 mg Clonazepam (Clonazepam 0.5 Mg Tablet) 0.5 mg PO BEDTIME [facility] Last Admin: 04/15/23 20:43 Dose: 0.5 mg Divalproex Sodium (Divalproex Sodium 250 Mg Tablet.Dr) 250 mg PO BEDTIME [facility] Last Admin: 04/15/23 20:43 Dose: 250 mg Hydroxyzine HCl (Hydroxyzine Hcl 25 Mg Tablet) 25 mg PO Q6H PRN PRN Reason: Anxiety Insulin Glargine (Insulin Glargine,Hum.Rec.Anlog 100 Unit/Ml 10 Ml Vial) 6 unit SUBCUT BEDTIME [facility] Last Admin: 04/15/23 20:38 Dose: 6 unit Lamotrigine (Lamotrigine 25 Mg Tablet) 75 mg PO BID [facility] Last Admin: 04/16/23 08:35 Dose: 75 mg Magnesium Hydroxide (Milk Of Magnesia 30 Ml Oral.Susp) 30 ml PO DAILY PRN PRN Reason: Constipation Metoprolol Succinate (Metoprolol Succinate Er 25 Mg Tab.Er.24h) 25 mg PO DAILY [facility]; Protocol Last Admin: 04/16/23 08:35 Dose: 25 mg Pravastatin Sodium (Pravastatin Sodium 40 Mg Tablet) 40 mg PO BEDTIME [facility] Last Admin: 04/15/23 20:44 Dose: 40 mg Quetiapine Fumarate (Quetiapine Fumarate 50 Mg Tablet) 150 mg PO BID [facility] Last Admin: 04/16/23 08:34 Dose: 150 mg Simethicone (Simethicone 80 Mg Tab.Chew) 160 mg PO Q4H PRN PRN Reason: Dyspepsia Trazodone HCl (Trazodone Hcl 50 Mg Tablet) 150 mg PO BEDTIME [facility] Last Admin: 04/15/23 20:39 Dose: 150 mg Vitamin D (Cholecalciferol (Vitamin D3) 25 Mcg Tablet) 25 mcg PO DAILY [facility] Last Admin: 04/16/23 08:34 Dose: 25 mcg Allergies Allergies Allergy/AdvReac Type Severity Reaction Status Date / Time latex Allergy Unknown Verified 04/12/23 15:01 Sulfa (Sulfonamide Allergy Unknown Verified 04/12/23 15:01 Antibiotics) Assessment & Plan Assessment & Plan (1) Major 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 Gandara is a 82 year-old woman with hx of schizophrenia since 1973. Pt also with major neurocognitive disorder. She lives in SNF, brought on sect 12 due to pt presenting as increasingly more parnaoid, refusing food and medications, aggressive towards staff at SNF. She does have UTI but note that per daughter, this has been usual presentation of exacerbation of schizophrenia. She has not had any food or fluids. She has taken medications. PLAN 1. Need inpatient level of care for safety, containment and stabilization. Pt appears gravely disable due to underlying paranoid and psychosis. 2. continue current medication, except for benadryl TID as it may worsened confusion. 04/15- continue tx. monitor intake. labs this morning BUN decreased from 35 to 19. 04/16 continue current medications. Patient educated on: diagnosis Reason for continued inpatient stay Substantial Risk for: inability to function Time Spent With Patient Time: Total time managing care of this patient today ____ minutes.
[2023-04-16 18:00] VITALS: BP 137/73; PULSE 91; RESP 18; TEMP 36.3; O2SAT 98
[2023-04-16] MEDS: Insulin Glargine,Hum.rec.anlog 100 UNIT/ML 10 ML VIAL 6 UNIT SUBCUT (20:48)
[2023-04-16] MEDS: Pravastatin Sodium 40 MG TABLET PO (20:49)
[2023-04-16] MEDS: traZODone HCL 50 MG TABLET 150 MG PO (20:50)
[2023-04-16] MEDS: Divalproex Sodium 250 MG TABLET.DR PO (20:50)
[2023-04-16] MEDS: clonazePAM 0.5 MG TABLET PO (20:50)
[2023-04-17 08:30] VITALS: BP 141/73; PULSE 86; RESP 16; TEMP 36; O2SAT 95
[2023-04-17] MEDS: Metoprolol Succinate ER 25 MG TAB.ER.24H PO (09:14)
[2023-04-17] MEDS: QUEtiapine Fumarate 50 MG TABLET 150 MG PO ×2 (09:14→20:51)
[2023-04-17] MEDS: cephALEXin 500 MG CAPSULE PO ×4 (09:14→20:52)
[2023-04-17] MEDS: lamoTRIgine 25 MG TABLET 75 MG PO ×2 (09:15→20:51)
[2023-04-17] MEDS: Cholecalciferol (Vitamin D3) 25 MCG TABLET PO (09:15)
--- NOTE | 2023-04-17 14:12 | HO.PSYCHPN ---
Subjective Subjective Date of Service: 04/17/23 Reason For Visit: paranoid, not eating Subjective Notes: Section 12B Interim History: met with patient. Discussed with Nursing. Chart reviewed. Overall sleep was poor last night. Paranoid. Did eat breakfast and pleasant this morning. Very paranoid with procedure writer. States she was brought here from her apartment and has no idea why. Did not want to elaborate when asked potential reasons. Did appear to have some difficulty with orientation getting mixed up between the month of October verses April. Was aware she was in hospital. Has been taking Seroquel, Lamictal Depakote and Klonopin Medication Compliance: Yes Side effects from medications: No Attending Groups: No Review of Systems Acute medical concerns: No Review of Systems Review of Systems Yes Unobtainable due to mental status Mental Status Exam Mental Status Exam Narrative: Appearance: casually groomed, good hygiene, in NAD behavior: guarded, superficially cooperative Psychomotor: less retardation Speech: clear, less delayed in response rate, more spontaneous TP: single word answers TC: suspicious, wanting to leave hospital Mood: fine Affect: guarded, suspicious Si: denies HI: denies VH/AH: denies Insight/judgment: poor x 2. Memory/cog: alert, oriented to place, not situation. Pending MOCA Diagnostics Vital Signs (24Hr): Vital Signs - 24 hr 04/16/23 18:00 Temperature 97.3 F Pulse Rate 91 Respiratory Rate 18 Blood Pressure 137/73 Pulse Oximetry 98 Oxygen Delivery Method Room Air BMI result Body Mass Index 25.4 Labs 04/12/23 15:40 04/15/23 08:23 Labs: Laboratory Results - last 48 hr 04/15/23 04/16/23 04/17/23 20:22 08:01 07:39 POC Glucose 142 H 146 H 129 H Medications Medications Current Medications Acetaminophen (Acetaminophen 325 Mg Tablet) 650 mg PO Q4H PRN PRN Reason: PAIN OR FEVER Al Hydroxide/Mg Hydroxide (Magnesium Hydrox/Alum Hydrox 30 Ml Oral.Susp) 30 ml PO Q6H PRN PRN Reason: Heartburn/Nausea Cephalexin HCl (Cephalexin 500 Mg Capsule) 500 mg PO QID [facility] Last Admin: 04/17/23 12:20 Dose: 500 mg Clonazepam (Clonazepam 0.5 Mg Tablet) 0.5 mg PO BEDTIME [facility] Last Admin: 04/16/23 20:50 Dose: 0.5 mg Divalproex Sodium (Divalproex Sodium 250 Mg Tablet.Dr) 250 mg PO BEDTIME [facility] Last Admin: 04/16/23 20:50 Dose: 250 mg Hydroxyzine HCl (Hydroxyzine Hcl 25 Mg Tablet) 25 mg PO Q6H PRN PRN Reason: Anxiety Insulin Glargine (Insulin Glargine,Hum.Rec.Anlog 100 Unit/Ml 10 Ml Vial) 6 unit SUBCUT BEDTIME [facility] Last Admin: 04/16/23 20:48 Dose: 6 unit Lamotrigine (Lamotrigine 25 Mg Tablet) 75 mg PO BID [facility] Last Admin: 04/17/23 09:15 Dose: 75 mg Magnesium Hydroxide (Milk Of Magnesia 30 Ml Oral.Susp) 30 ml PO DAILY PRN PRN Reason: Constipation Metoprolol Succinate (Metoprolol Succinate Er 25 Mg Tab.Er.24h) 25 mg PO DAILY [facility]; Protocol Last Admin: 04/17/23 09:14 Dose: 25 mg Pravastatin Sodium (Pravastatin Sodium 40 Mg Tablet) 40 mg PO BEDTIME [facility] Last Admin: 04/16/23 20:49 Dose: 40 mg Quetiapine Fumarate (Quetiapine Fumarate 50 Mg Tablet) 150 mg PO BID [facility] Last Admin: 04/17/23 09:14 Dose: 150 mg Simethicone (Simethicone 80 Mg Tab.Chew) 160 mg PO Q4H PRN PRN Reason: Dyspepsia Trazodone HCl (Trazodone Hcl 50 Mg Tablet) 150 mg PO BEDTIME [facility] Last Admin: 04/16/23 20:50 Dose: 150 mg Vitamin D (Cholecalciferol (Vitamin D3) 25 Mcg Tablet) 25 mcg PO DAILY [facility] Last Admin: 04/17/23 09:15 Dose: 25 mcg Allergies Allergies Allergy/AdvReac Type Severity Reaction Status Date / Time latex Allergy Unknown Verified 04/12/23 15:01 Sulfa (Sulfonamide Allergy Unknown Verified 04/12/23 15:01 Antibiotics) Assessment & Plan Assessment & Plan (1) Major 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 Gandara is a 82 year-old woman with hx of schizophrenia since 1973. Pt also with major neurocognitive disorder. She lives in SNF, brought on sect 12 due to pt presenting as increasingly more parnaoid, refusing food and medications, aggressive towards staff at SNF. She does have UTI but note that per daughter, this has been usual presentation of exacerbation of schizophrenia. She has not had any food or fluids. She has taken medications. PLAN 1. Need inpatient level of care for safety, containment and stabilization. Pt appears gravely disable due to underlying paranoid and psychosis. 2. continue current medication, except for benadryl TID as it may worsened confusion. 04/15- continue tx. monitor intake. labs this morning BUN decreased from 35 to 19. 04/16 continue current medications. 04/17/2023: No changes to current plan. Reason for continued inpatient stay Substantial Risk for: inability to function Time Spent With Patient Time: Total time managing care of this patient today ____ minutes.
[2023-04-17 18:00] VITALS: BP 163/73; PULSE 85; RESP 18; TEMP 36; O2SAT 99
[2023-04-17] MEDS: Insulin Glargine,Hum.rec.anlog 100 UNIT/ML 10 ML VIAL 6 UNIT SUBCUT (20:50)
[2023-04-17] MEDS: traZODone HCL 50 MG TABLET 150 MG PO (20:50)
[2023-04-17] MEDS: Pravastatin Sodium 40 MG TABLET PO (20:52)
[2023-04-17] MEDS: clonazePAM 0.5 MG TABLET PO (20:53)
[2023-04-17] MEDS: Divalproex Sodium 250 MG TABLET.DR PO (20:53)
[2023-04-18] MEDS: Metoprolol Succinate ER 25 MG TAB.ER.24H PO (08:22)
[2023-04-18] MEDS: QUEtiapine Fumarate 50 MG TABLET 150 MG PO ×2 (08:22→20:56)
[2023-04-18] MEDS: lamoTRIgine 25 MG TABLET 75 MG PO ×2 (08:23→20:56)
[2023-04-18] MEDS: Cholecalciferol (Vitamin D3) 25 MCG TABLET PO (08:23)
[2023-04-18] MEDS: cephALEXin 500 MG CAPSULE PO ×4 (08:23→20:56)
[2023-04-18 08:30] VITALS: BP 135/65; PULSE 78; RESP 16; TEMP 36.7; O2SAT 96
--- NOTE | 2023-04-18 12:44 | HO.PSYCHPN ---
Subjective Subjective Date of Service: 04/18/23 Reason For Visit: paranoid, not eating Subjective Notes: Section 12B Interim History: met with patient. Discussed with Nursing. Overall sleep better last night. Still paranoid I was put in assisted . Did not want to elaborate when attempted to explore same. Did appear to have some difficulty with orientation getting mixed up between the month of October verses April. Was aware she was in hospital. Has been taking Seroquel, Lamictal Depakote and Klonopin Medication Compliance: Yes Side effects from medications: No Attending Groups: Intermittent Review of Systems Acute medical concerns: No Review of Systems Review of Systems Yes Unobtainable due to mental status Mental Status Exam Mental Status Exam Narrative: Appearance: casually groomed, good hygiene, in NAD behavior: guarded, superficially cooperative Psychomotor: less retardation Speech: clear, less delayed in response rate, more spontaneous TP: single word answers TC: suspicious, wanting to leave hospital Mood: fine Affect: guarded, suspicious Si: denies HI: denies VH/AH: denies Insight/judgment: poor x 2. Memory/cog: alert, oriented to place, not situation. Pending MOCA Diagnostics Vital Signs (24Hr): Vital Signs - 24 hr 04/17/23 18:00 04/18/23 08:30 Temperature 96.8 F 98.1 F Pulse Rate 85 78 Respiratory Rate 18 16 Blood Pressure 163/73 H 135/65 Pulse Oximetry 99 96 Oxygen Delivery Method Room Air Room Air BMI result Body Mass Index 25.4 Labs 04/12/23 15:40 04/15/23 08:23 Labs: Laboratory Results - last 48 hr 04/17/23 04/18/23 07:39 07:27 POC Glucose 129 H 113 Medications Medications Current Medications Acetaminophen (Acetaminophen 325 Mg Tablet) 650 mg PO Q4H PRN PRN Reason: PAIN OR FEVER Al Hydroxide/Mg Hydroxide (Magnesium Hydrox/Alum Hydrox 30 Ml Oral.Susp) 30 ml PO Q6H PRN PRN Reason: Heartburn/Nausea Cephalexin HCl (Cephalexin 500 Mg Capsule) 500 mg PO QID [facility] Last Admin: 04/18/23 12:36 Dose: 500 mg Divalproex Sodium (Divalproex Sodium 250 Mg Tablet.Dr) 250 mg PO BEDTIME [facility] Last Admin: 04/17/23 20:53 Dose: 250 mg Hydroxyzine HCl (Hydroxyzine Hcl 25 Mg Tablet) 25 mg PO Q6H PRN PRN Reason: Anxiety Insulin Glargine (Insulin Glargine,Hum.Rec.Anlog 100 Unit/Ml 10 Ml Vial) 6 unit SUBCUT BEDTIME [facility] Last Admin: 04/17/23 20:50 Dose: 6 unit Lamotrigine (Lamotrigine 25 Mg Tablet) 75 mg PO BID [facility] Last Admin: 04/18/23 08:23 Dose: 75 mg Magnesium Hydroxide (Milk Of Magnesia 30 Ml Oral.Susp) 30 ml PO DAILY PRN PRN Reason: Constipation Metoprolol Succinate (Metoprolol Succinate Er 25 Mg Tab.Er.24h) 25 mg PO DAILY [facility]; Protocol Last Admin: 04/18/23 08:22 Dose: 25 mg Pravastatin Sodium (Pravastatin Sodium 40 Mg Tablet) 40 mg PO BEDTIME [facility] Last Admin: 04/17/23 20:52 Dose: 40 mg Quetiapine Fumarate (Quetiapine Fumarate 50 Mg Tablet) 150 mg PO BID [facility] Last Admin: 04/18/23 08:22 Dose: 150 mg Simethicone (Simethicone 80 Mg Tab.Chew) 160 mg PO Q4H PRN PRN Reason: Dyspepsia Trazodone HCl (Trazodone Hcl 50 Mg Tablet) 150 mg PO BEDTIME [facility] Last Admin: 04/17/23 20:50 Dose: 150 mg Vitamin D (Cholecalciferol (Vitamin D3) 25 Mcg Tablet) 25 mcg PO DAILY [facility] Last Admin: 04/18/23 08:23 Dose: 25 mcg Allergies Allergies Allergy/AdvReac Type Severity Reaction Status Date / Time latex Allergy Unknown Verified 04/12/23 15:01 Sulfa (Sulfonamide Allergy Unknown Verified 04/12/23 15:01 Antibiotics) Assessment & Plan Assessment & Plan (1) Major 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 Gandara is a 82 year-old woman with hx of schizophrenia since 1973. Pt also with major neurocognitive disorder. She lives in SNF, brought on sect 12 due to pt presenting as increasingly more parnaoid, refusing food and medications, aggressive towards staff at SNF. She does have UTI but note that per daughter, this has been usual presentation of exacerbation of schizophrenia. She has not had any food or fluids. She has taken medications. PLAN 1. Need inpatient level of care for safety, containment and stabilization. Pt appears gravely disable due to underlying paranoid and psychosis. 2. continue current medication, except for benadryl TID as it may worsened confusion. 04/15- continue tx. monitor intake. labs this morning BUN decreased from 35 to 19. 04/16 continue current medications. 04/18/2023: No changes to current plan. Reason for continued inpatient stay Substantial Risk for: inability to function Time Spent With Patient Time: Total time managing care of this patient today ____ minutes.
[2023-04-18 20:20] VITALS: BP 161/77; PULSE 130; RESP 20; TEMP 37.1; O2SAT 96
[2023-04-18] MEDS: traZODone HCL 50 MG TABLET 150 MG PO (20:56)
[2023-04-18] MEDS: Divalproex Sodium 250 MG TABLET.DR PO (20:56)
[2023-04-18] MEDS: Pravastatin Sodium 40 MG TABLET PO (20:56)
[2023-04-18] MEDS: Insulin Glargine,Hum.rec.anlog 100 UNIT/ML 10 ML VIAL 6 UNIT SUBCUT (21:01)
[2023-04-18 22:30] VITALS: PULSE 130
[2023-04-18] MEDS: hydrOXYzine HCL 25 MG TABLET PO (22:37)
[2023-04-18 23:15] VITALS: TEMP 37.4
[2023-04-18] MEDS: Acetaminophen 325 MG TABLET 650 MG PO (23:20)
--- NOTE | 2023-04-19 00:28 | PC.NURSE ---
Pt confused,anxious, irritable, restless and agitated. She had elevated BP and HR. BP 161/77, HR 130s. Pt denied any symptoms. MD Gregorio was notified and said to recheck 90 min after HS med administration. Med was given. HR was rechecked and was still elevated at 130s, Pt refused BP.. MD notified and stat EKG done. Pt appeared very anxious and prn atarax was given. MD Gregorio consulted with MD Morales who said to recheck temp.Temporal temp was 99.4. Pt received PRN tylenol. MD Flores ordered labs/lactic/CXR and Pt refused.MD Michelle came up to see pt and spoke to her at bedside. Pt continued tor refuse. Pt does not appear to be in any distress and keeps stating that she just wants to be left alone , She says she is trying to sleep and keeps asking staff to leave her room. MD Gregorio updated.
--- NOTE | 2023-04-19 01:48 | PM.EVENT ---
Event Note Date of Service: 04/19/23 Event Note: I was asked to see this patient for tachycardia. Patient's temperature bitemporal reading 4. Likely with contributing to her tachycardia. EKG shows sinus tachycardia. We ordered blood cultures, urine, chest x-ray, as well as lactic acid and CBC, patient refused all of them. I want and I said down the patient for 15 minutes speaking to her about the need for these labs and evaluation, patient refused and wanted to just sleep. She is otherwise hemodynamically stable. Time Spent With Patient Time: Total time managing care of this patient today ____ minutes.
[2023-04-19 03:00] VITALS: TEMP 36.8
[2023-04-19 04:50] VITALS: PULSE 114
[2023-04-19 08:40] VITALS: BP 143/95; PULSE 116; RESP 20; TEMP 36.6; O2SAT 97
[2023-04-19 08:45] VITALS: PULSE 108
[2023-04-19] MEDS: cephALEXin 500 MG CAPSULE PO ×2 (10:18→13:15)
[2023-04-19] MEDS: Cholecalciferol (Vitamin D3) 25 MCG TABLET PO (10:19)
[2023-04-19] MEDS: lamoTRIgine 25 MG TABLET 75 MG PO ×2 (10:19→20:12)
[2023-04-19] MEDS: Metoprolol Succinate ER 25 MG TAB.ER.24H PO (10:20)
[2023-04-19] MEDS: QUEtiapine Fumarate 50 MG TABLET 150 MG PO ×2 (10:20→20:13)
--- NOTE | 2023-04-19 10:40 | HO.PSYCHPN ---
Subjective Subjective Date of Service: 04/19/23 Reason For Visit: paranoid, not eating Subjective Notes: Section 12B Interim History: Pt overnight, tachycardic. report of pt febrile, but only Temp found on chart is 99F, last night. Pt had EKG- that shows tachycardia, prolonged QRS complex 114, QTc 553ms. Today's EKG shows Qtc 470ms. EKGs reviewed by merchandise support associate, Dr. Mccoy- no new changes to indicate acute ischemia. Troponin on 04/19 less than 6. Cardiology recommends to monitor QTc with seroquel although pt appeaars to tolerate it. Cardiology also recommends to increase metoprolol to 25mg po BID. This morning chest XR- left upper nodule versus infection- Note that pt's O2sat is stable on room air >97, no cough, no SOB, no nasal symptoms. CBC- without leukocytosis, CMP- unremarkable. improved renal function as pt has been eating better. Pt denies any complaints but does report that she is tired. She is superficially cooperative. She has been taking medications as prescribed. Diagnostics Vital Signs (24Hr): Vital Signs - 24 hr 04/18/23 20:20 04/18/23 22:30 04/18/23 23:15 Temperature 98.7 F 99.4 F Pulse Rate 130 H 130 H Respiratory Rate 20 Blood Pressure 161/77 H Pulse Oximetry 96 Oxygen Delivery Method Room Air 04/19/23 03:00 04/19/23 04:50 Temperature 98.3 F Pulse Rate 114 H Respiratory Rate Blood Pressure Pulse Oximetry Oxygen Delivery Method BMI result Body Mass Index 25.4 Labs 04/12/23 15:40 04/15/23 08:23 Labs: Laboratory Results - last 48 hr 04/18/23 04/18/23 04/19/23 07:27 20:45 08:15 POC Glucose 113 143 H 122 H Medications Medications Current Medications Acetaminophen (Acetaminophen 325 Mg Tablet) 650 mg PO Q4H PRN PRN Reason: PAIN OR FEVER Last Admin: 04/18/23 23:20 Dose: 650 mg Al Hydroxide/Mg Hydroxide (Magnesium Hydrox/Alum Hydrox 30 Ml Oral.Susp) 30 ml PO Q6H PRN PRN Reason: Heartburn/Nausea Cephalexin HCl (Cephalexin 500 Mg Capsule) 500 mg PO QID [facility] Last Admin: 07/03/23 10:18 Dose: 500 mg Divalproex Sodium (Divalproex Sodium 250 Mg Tablet.Dr) 250 mg PO BEDTIME [facility] Last Admin: 04/18/23 20:56 Dose: 250 mg Hydroxyzine HCl (Hydroxyzine Hcl 25 Mg Tablet) 25 mg PO Q6H PRN PRN Reason: Anxiety Last Admin: 04/18/23 22:37 Dose: 25 mg Insulin Glargine (Insulin Glargine,Hum.Rec.Anlog 100 Unit/Ml 10 Ml Vial) 6 unit SUBCUT BEDTIME [facility] Last Admin: 04/18/23 21:01 Dose: 6 unit Lamotrigine (Lamotrigine 25 Mg Tablet) 75 mg PO BID [facility] Last Admin: 04/19/23 10:19 Dose: 75 mg Magnesium Hydroxide (Milk Of Magnesia 30 Ml Oral.Susp) 30 ml PO DAILY PRN PRN Reason: Constipation Metoprolol Succinate (Metoprolol Succinate Er 25 Mg Tab.Er.24h) 25 mg PO DAILY [facility]; Protocol Last Admin: 04/19/23 10:20 Dose: 25 mg Pravastatin Sodium (Pravastatin Sodium 40 Mg Tablet) 40 mg PO BEDTIME [facility] Last Admin: 04/18/23 20:56 Dose: 40 mg Quetiapine Fumarate (Quetiapine Fumarate 50 Mg Tablet) 150 mg PO BID [facility] Last Admin: 04/19/23 10:20 Dose: 150 mg Simethicone (Simethicone 80 Mg Tab.Chew) 160 mg PO Q4H PRN PRN Reason: Dyspepsia Trazodone HCl (Trazodone Hcl 50 Mg Tablet) 150 mg PO BEDTIME [facility] Last Admin: 04/18/23 20:56 Dose: 150 mg Vitamin D (Cholecalciferol (Vitamin D3) 25 Mcg Tablet) 25 mcg PO DAILY [facility] Last Admin: 04/19/23 10:19 Dose: 25 mcg Allergies Allergies Allergy/AdvReac Type Severity Reaction Status Date / Time latex Allergy Unknown Verified 04/12/23 15:01 Sulfa (Sulfonamide Allergy Unknown Verified 04/12/23 15:01 Antibiotics) Assessment & Plan Assessment & Plan (1) Major 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 Donetini is a 82 year-old woman with hx of schizophrenia since 1973. Pt also with major neurocognitive disorder. She lives in SNF, brought on sect 12 due to pt presenting as increasingly more parnaoid, refusing food and medications, aggressive towards staff at SNF. She does have UTI but note that per daughter, this has been usual presentation of exacerbation of schizophrenia. She has not had any food or fluids. She has taken medications. PLAN 1. Need inpatient level of care for safety, containment and stabilization. Pt appears gravely disable due to underlying paranoid and psychosis. 2. continue current medication, except for benadryl TID as it may worsened confusion. 04/15- continue tx. monitor intake. labs this morning BUN decreased from 35 to 19. 04/16 continue current medications. 04/18/2023: No changes to current plan. 04/19- Pt had EKG- that shows tachycardia, prolonged QRS complex 114, QTc 553ms last night. Today's EKG shows Qtc 470ms. EKGs reviewed by merchandise support associate, Dr. Mccoy- no new changes to indicate acute ischemia. Troponin on 04/19 less than 6. Cardiology recommends to monitor QTc with seroquel although pt appears to tolerate it. Cardiology also recommends to increase metoprolol to 25mg po BID. This morning chest XR- left upper nodule versus infection- Note that pt's O2sat is stable on room air >97, no cough, no SOB, no nasal symptoms no other symptoms of respiratory infection. CBC- without leukocytosis, CMP- unremarkable. improved renal function as pt has been eating better. Reason for continued inpatient stay Substantial Risk for: inability to function Time Spent With Patient Time: Total time managing care of this patient today ____ minutes.
[2023-04-19 12:39] LABS: Alanine Aminotransferase 12 U/L (0-31); Albumin Level 3.2 g/dL (3.5-5.0); Alkaline Phosphatase 52 U/L (39-117); Anion Gap 11 (12-20); Aspartate Amino Transferase 14 U/L (5-31); Bilirubin Total 0.3 mg/dL (0.0-1.0); Blood Urea Nitrogen 13 mg/dL (9-16); Calcium 9.1 mg/dL (8.4-10.2); Carbon Dioxide 28 mmol/L (22-29); Chloride 108 mmol/L (96-108); Creatinine Clr Calc Pharmacy 37.9; Estimated Glomerular Filt Rate 57; Glucose Random 237 mg/dL (60-115); Sodium 143 mmol/L (135-145); Total Protein 6.3 g/dL (6.5-8.0)
--- NOTE | 2023-04-19 14:17 | PM.EVENT ---
Event Note Date of Service: 04/19/23 Event Note: CXR shows possible YENI infiltrate with possible nodular appearance. Follow up chest CT ordered by psychiatry appears consistent with a YNEI pneumonia on my read, though final report is pending. There is no leukocytosis, though did have mild leukocytosis on arrival to ED of 11.4. UA was questionable for UTI so was started on keflex. However, culture was negative. Keflex discontinued today. She is afebrile though has been in sinus tachycardia, rates 108-130 since yesterday. Vitals otherwise wnl. She is asymptomatic. Given the findings on imaging studies and acute tachycardia that may be related to infection, will treat with PO Augmentin BID and doxycycline BID x 7 days. These have been ordered. Recommend taking these medications with food and a 8 oz water. Recommend yogurt daily for probiotics. She should have follow up cxr on outpt basis in 4-6 weeks to ensure resolution. QTc on EKG last night 550, sinus tach rate 126. Pt refused all labs last night. There were no complaints at that time. No cp, palps, lightheadedness. EKG repeated this am. QTC remains prolonged but improved at 470. Remains in sinus tach, rate 111. No JHONY or depressions. 1st degree AV block noted. Agreed to labs this am. Labs reassuring with K 4.0, Mag 2.0. Discussed with psych who has discussed EKG findings with cardiology and recommended increase in metoprolol frequency to 25mg BID. QTc has improved, pt asymptomatic. Continue monitoring QTc and adjust offending agents as appropriate. Thank you for allowing me to participate in this consult. Signing off at this time. Please do not hesitate to call for further questions. Time Spent With Patient Time: Total time managing care of this patient today ____ minutes.
[2023-04-19] MEDS: Insulin Glargine,Hum.rec.anlog 100 UNIT/ML 10 ML VIAL 6 UNIT SUBCUT (20:11)
[2023-04-19] MEDS: Divalproex Sodium 250 MG TABLET.DR PO (20:13)
[2023-04-19] MEDS: Pravastatin Sodium 40 MG TABLET PO (20:14)
[2023-04-19] MEDS: traZODone HCL 50 MG TABLET 150 MG PO (20:14)
[2023-04-19 20:40] VITALS: BP 157/77; PULSE 85; RESP 18; TEMP 37.3; O2SAT 97
--- NOTE | 2023-04-19 22:46 | PC.NURSE ---
Anna was irritable on first approach, questioned her medication, verbalizing that she had taken already, education provided, med given without problems, declined to have POC at HS, continues with low grafe temp, declined Tylenol as it would increase her pill count, that's a lot of pills no respiratory issues assessed, on antibiotics for LLL infiltrate, CAT scan without contrast done results noted left upper lobe mass and mod hiatal hernia, biopsy recommended, chest xray noted LLL infiltrate and possible nodule, repeat xray after antibiotics.
--- NOTE | 2023-04-20 05:36 | PC.NURSE ---
Tried to wake patient at approximately 0230 for scheduled abx. Pt upset about being woken, asking WHAT ? Pt educated on importance of abx for pna. Patient did take doxycycline after education and assistance; refused amoxicillin stating angrily I don't care I don't want it. No more . Patient allowed to return to sleep.
[2023-04-20 08:20] VITALS: BP 156/65; PULSE 72; RESP 16; TEMP 36.1; O2SAT 97
[2023-04-20] MEDS: QUEtiapine Fumarate 50 MG TABLET 150 MG PO (08:37)
[2023-04-20] MEDS: Cholecalciferol (Vitamin D3) 25 MCG TABLET PO (08:37)
[2023-04-20] MEDS: lamoTRIgine 25 MG TABLET 75 MG PO ×2 (08:38→20:43)
--- NOTE | 2023-04-20 14:26 | HO.PSYCHPN ---
Subjective Subjective Date of Service: 04/20/23 Reason For Visit: paranoid, not eating Subjective Notes: Section 7 Interim History: Pt continues to report that staff is after her. She thinks people are accusing her of something she has not done. She is eating more but continues significantly paranoid. She is taking medications as prescribed. She denies physical concerns. Chest CT shows left upper parahilar ill-defined mass w/obstructive peripheral atelectasis, recommend CT guided biopsy. No respiratory s/s, no sob, o2sat 97 on RA, afebrile. Medication Compliance: Yes Side effects from medications: No Review of Systems Review of Systems ROS limited due to patient's acute mental status Yes all other systems are reviewed and are negative and Unobtainable due to mental status Constitutional: Reports as per [facility] Mental Status Exam Mental Status Exam Narrative: Appearance: casually groomed, good hygiene, in NAD behavior: guarded, superficially cooperative Psychomotor: less retardation Speech: clear, less delayed in response rate, more spontaneous TP: single word answers TC: suspicious, wanting to leave hospital Mood: fine Affect: guarded, suspicious Si: denies HI: denies VH/AH: denies Insight/judgment: poor x 2. Memory/cog: alert, oriented to place, not situation. Pending [facility] Diagnostics Vital Signs (24Hr): Vital Signs - 24 hr 04/19/23 20:40 04/20/23 08:20 Temperature 99.2 F 96.9 F Pulse Rate 85 72 Respiratory Rate 18 16 Blood Pressure 157/77 H 156/65 H Pulse Oximetry 97 97 Oxygen Delivery Method Room Air Room Air BMI result Body Mass Index 25.4 Labs 04/19/23 12:14 04/19/23 12:14 Labs: Laboratory Results - last 48 hr 04/18/23 04/19/23 04/19/23 20:45 08:15 11:36 WBC RBC Hgb Hct MCV MCH MCHC RDW Plt Count MPV Immature Gran % (Auto) Neut % (Auto) Lymph % (Auto) [place] % (Auto) Eos % (Auto) Baso % (Auto) Lymph # (Auto) [place] # (Auto) Eos # (Auto) Baso # (Auto) Abs Immat Gran (auto) Absolute Neuts (auto) Absolute Nucleated RBC Nucleated RBC % (auto) Sodium Potassium Chloride Carbon Dioxide Anion Gap BUN Creatinine Estim Creat Clear Calc Estimated GFR POC Glucose 143 H 122 H 230 H Random Glucose Calcium Magnesium Total Bilirubin AST ALT Alkaline Phosphatase Troponin I High Sens Total Protein Albumin 04/19/23 04/19/23 04/19/23 12:14 12:14 12:14 WBC 5.6 RBC 3.93 L Hgb 12.1 Hct 37.0 MCV 94.1 MCH 30.8 MCHC 32.7 RDW 12.2 Plt Count 207 MPV 9.3 L Immature Gran % (Auto) 0.2 Neut % (Auto) 65.6 Lymph % (Auto) 24.1 [place] % (Auto) 8.5 Eos % (Auto) 1.1 Baso % (Auto) 0.5 Lymph # (Auto) 1.3 [place] # (Auto) 0.5 Eos # (Auto) 0.1 Baso # (Auto) 0.0 Abs Immat Gran (auto) 0.01 Absolute Neuts (auto) 3.6 Absolute Nucleated RBC 0.000 Nucleated RBC % (auto) 0.0 Sodium 143 Potassium 4.0 Chloride 108 Carbon Dioxide 28 Anion Gap 11 L BUN 13 Creatinine 0.95 Estim Creat Clear Calc 37.9 Estimated GFR 57 POC Glucose Random Glucose 237 H Calcium 9.1 Magnesium 2.0 Total Bilirubin 0.3 AST 14 ALT 12 Alkaline Phosphatase 52 Troponin I High Sens 6.2 Total Protein 6.3 L Albumin 3.2 L 04/20/23 07:32 WBC RBC Hgb Hct MCV MCH MCHC RDW Plt Count MPV Immature Gran % (Auto) Neut % (Auto) Lymph % (Auto) [place] % (Auto) Eos % (Auto) Baso % (Auto) Lymph # (Auto) [place] # (Auto) Eos # (Auto) Baso # (Auto) Abs Immat Gran (auto) Absolute Neuts (auto) Absolute Nucleated RBC Nucleated RBC % (auto) Sodium Potassium Chloride Carbon Dioxide Anion Gap BUN Creatinine Estim Creat Clear Calc Estimated GFR POC Glucose 137 H Random Glucose Calcium Magnesium Total Bilirubin AST ALT Alkaline Phosphatase Troponin I High Sens Total Protein Albumin Imaging Radiology Impressions: ITS Impressions Chest X-Ray 04/19/23 11:05 IMPRESSION: Focal opacities in the left upper lobe suggesting infiltrates however demonstrate a somewhat nodular appearance. A repeat chest radiograph following termination of treatment for pneumonia is recommended to assess for resolution. If these findings do not resolve a chest CT scan is recommended. Chest CT 04/19/23 13:48 IMPRESSION: 1. Left upper lobe parahilar ill-defined mass with postobstructive peripheral atelectasis. Recommend CT-guided biopsy 2. No abnormal mediastinal or axillary lymph nodes seen. 3. Moderate-sized hiatal hernia. Fleischner guidelines were followed. Medications Medications Current Medications Acetaminophen (Acetaminophen 325 Mg Tablet) 650 mg PO Q4H PRN PRN Reason: PAIN OR FEVER Last Admin: 04/18/23 23:20 Dose: 650 mg Al Hydroxide/Mg Hydroxide (Magnesium Hydrox/Alum Hydrox 30 Ml Oral.Susp) 30 ml PO Q6H PRN PRN Reason: Heartburn/Nausea Divalproex Sodium (Divalproex Sodium 250 Mg Tablet.Dr) 250 mg PO BEDTIME [facility] Last Admin: 04/19/23 20:13 Dose: 250 mg Hydroxyzine HCl (Hydroxyzine Hcl 25 Mg Tablet) 25 mg PO Q6H PRN PRN Reason: Anxiety Last Admin: 04/18/23 22:37 Dose: 25 mg Insulin Glargine (Insulin Glargine,Hum.Rec.Anlog 100 Unit/Ml 10 Ml Vial) 6 unit SUBCUT BEDTIME [facility] Last Admin: 04/19/23 20:11 Dose: 6 unit Lamotrigine (Lamotrigine 25 Mg Tablet) 75 mg PO BID [facility] Last Admin: 04/20/23 08:38 Dose: 75 mg Magnesium Hydroxide (Milk Of Magnesia 30 Ml Oral.Susp) 30 ml PO DAILY PRN PRN Reason: Constipation Metoprolol Tartrate (Metoprolol Tartrate 25 Mg Tablet) 25 mg PO BID [facility]; Protocol Last Admin: 04/20/23 08:38 Dose: 25 mg Pravastatin Sodium (Pravastatin Sodium 40 Mg Tablet) 40 mg PO BEDTIME [facility] Last Admin: 04/19/23 20:14 Dose: 40 mg Quetiapine Fumarate (Quetiapine Fumarate 100 Mg Tablet) 100 mg PO BEDTIME [facility] Simethicone (Simethicone 80 Mg Tab.Chew) 160 mg PO Q4H PRN PRN Reason: Dyspepsia Trazodone HCl (Trazodone Hcl 50 Mg Tablet) 150 mg PO BEDTIME [facility] Last Admin: 04/19/23 20:14 Dose: 150 mg Vitamin D (Cholecalciferol (Vitamin D3) 25 Mcg Tablet) 25 mcg PO DAILY [facility] Last Admin: 04/20/23 08:37 Dose: 25 mcg Allergies Allergies Allergy/AdvReac Type Severity Reaction Status Date / Time latex Allergy Unknown Verified 04/12/23 15:01 Sulfa (Sulfonamide Allergy Unknown Verified 04/12/23 15:01 Antibiotics) Assessment & Plan Assessment & Plan (1) Major 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 Gadnara is a 82 year-old woman with hx of schizophrenia since 1973. Pt also with major neurocognitive disorder. She lives in SNF, brought on sect 12 due to pt presenting as increasingly more parnaoid, refusing food and medications, aggressive towards staff at SNF. She does have UTI but note that per daughter, this has been usual presentation of exacerbation of schizophrenia. She has not had any food or fluids. She has taken medications. PLAN 1. Need inpatient level of care for safety, containment and stabilization. Pt appears gravely disable due to underlying paranoid and psychosis. 2. continue current medication, except for benadryl TID as it may worsened confusion. 04/15- continue tx. monitor intake. labs this morning BUN decreased from 35 to 19. 04/16 continue current medications. 04/18/2023: No changes to current plan. 04/19- Pt had EKG- that shows tachycardia, prolonged QRS complex 114, QTc 553ms last night. Today's EKG shows Qtc 470ms. EKGs reviewed by instructor extension work, Dr. Mccoy- no new changes to indicate acute ischemia. Troponin on 04/19 less than 6. Cardiology recommends to monitor QTc with seroquel although pt appears to tolerate it. Cardiology also recommends to increase metoprolol to 25mg po BID. This morning chest XR- left upper nodule versus infection- Note that pt's O2sat is stable on room air >97, no cough, no SOB, no nasal symptoms no other symptoms of respiratory infection. CBC- without leukocytosis, CMP- unremarkable. improved renal function as pt has been eating better. 04/20 will switch gradually seroquel to risperidone- monitor EPS, pvc monitor QTC as it is slightly prolonged, better than previous night. Guardian/Caregiver educated on: diagnosis Informed Consent: understands Reason for continued inpatient stay Substantial Risk for: inability to function and rapid decompensation Time Spent With Patient Time: Total time managing care of this patient today ____ minutes.
[2023-04-20 18:00] VITALS: BP 155/60; PULSE 95; RESP 16; TEMP 36.8; O2SAT 97
[2023-04-20] MEDS: Divalproex Sodium 250 MG TABLET.DR PO (20:42)
[2023-04-20] MEDS: Pravastatin Sodium 40 MG TABLET PO (20:42)
[2023-04-20] MEDS: traZODone HCL 50 MG TABLET 150 MG PO (20:43)
[2023-04-20] MEDS: Insulin Glargine,Hum.rec.anlog 100 UNIT/ML 10 ML VIAL 6 UNIT SUBCUT (20:43)
[2023-04-21 07:50] VITALS: BP 178/83; PULSE 79; RESP 18; TEMP 36.6; O2SAT 99
[2023-04-21] MEDS: lamoTRIgine 25 MG TABLET 75 MG PO ×2 (09:16→20:33)
[2023-04-21] MEDS: Cholecalciferol (Vitamin D3) 25 MCG TABLET PO (09:16)
--- NOTE | 2023-04-21 10:19 | HO.PSYCHPN ---
Subjective Subjective Date of Service: 04/21/23 Reason For Visit: paranoid, not eating Subjective Notes: Conditional Voluntary Interim History: Pt slept through the night. Pt reports she heard people here on the unit yesterday singing songs about her. She reports they were accusing her of harming a child. Pt tearful stating I would never hurt anyone. Pt also reports she misses her children, her daughter and her son. She denies SI/HI. She has been more visible on the unit and eating more. She is taking medications as prescribed. No cogwheel on exam, pt noted to have lower involuntary movement but no sense of restless or need to pace, some mild chorea movement. No upper extremity or perioral involuntary movements. Daughter reports such movement present for decades, independent of antipsychotic use. It does not appear to akathisia- mostly as pt does not seem need to pace or subjective feeling of restlessness. But it may respond to propanolol. Medication Compliance: Yes Side effects from medications: No Review of Systems Review of Systems ROS limited due to patient's acute mental status Yes all other systems are reviewed and are negative and Unobtainable due to mental status Constitutional: Reports as per [facility] Mental Status Exam Mental Status Exam Narrative: Appearance: casually groomed, good hygiene, in NAD behavior: guarded, superficially cooperative Psychomotor: less retardation Speech: clear, less delayed in response rate, more spontaneous TP: single word answers TC: suspicious, wanting to leave hospital Mood: fine Affect: guarded, suspicious Si: denies HI: denies VH/AH: denies Insight/judgment: poor x 2. Memory/cog: alert, oriented to place, not situation. Pending [facility] Diagnostics Vital Signs (24Hr): Vital Signs - 24 hr 04/20/23 18:00 Temperature 98.3 F Pulse Rate 95 Respiratory Rate 16 Blood Pressure 155/60 H Pulse Oximetry 97 Oxygen Delivery Method Room Air BMI result Body Mass Index 25.4 Labs 04/19/23 12:14 04/19/23 12:14 Labs: Laboratory Results - last 48 hr 04/19/23 04/19/23 04/19/23 11:36 12:14 12:14 WBC 5.6 RBC 3.93 L Hgb 12.1 Hct 37.0 MCV 94.1 MCH 30.8 MCHC 32.7 RDW 12.2 Plt Count 207 MPV 9.3 L Immature Gran % (Auto) 0.2 Neut % (Auto) 65.6 Lymph % (Auto) 24.1 [place] % (Auto) 8.5 Eos % (Auto) 1.1 Baso % (Auto) 0.5 Lymph # (Auto) 1.3 [place] # (Auto) 0.5 Eos # (Auto) 0.1 Baso # (Auto) 0.0 Abs Immat Gran (auto) 0.01 Absolute Neuts (auto) 3.6 Absolute Nucleated RBC 0.000 Nucleated RBC % (auto) 0.0 Sodium 143 Potassium 4.0 Chloride 108 Carbon Dioxide 28 Anion Gap 11 L BUN 13 Creatinine 0.95 Estim Creat Clear Calc 37.9 Estimated GFR 57 POC Glucose 230 H Random Glucose 237 H Calcium 9.1 Magnesium 2.0 Total Bilirubin 0.3 AST 14 ALT 12 Alkaline Phosphatase 52 Troponin I High Sens Total Protein 6.3 L Albumin 3.2 L 04/19/23 04/20/23 04/21/23 12:14 07:32 07:43 WBC RBC Hgb Hct MCV MCH MCHC RDW Plt Count MPV Immature Gran % (Auto) Neut % (Auto) Lymph % (Auto) [place] % (Auto) Eos % (Auto) Baso % (Auto) Lymph # (Auto) [place] # (Auto) Eos # (Auto) Baso # (Auto) Abs Immat Gran (auto) Absolute Neuts (auto) Absolute Nucleated RBC Nucleated RBC % (auto) Sodium Potassium Chloride Carbon Dioxide Anion Gap BUN Creatinine Estim Creat Clear Calc Estimated GFR POC Glucose 137 H 137 H Random Glucose Calcium Magnesium Total Bilirubin AST ALT Alkaline Phosphatase Troponin I High Sens 6.2 Total Protein Albumin Imaging Radiology Impressions: ITS Impressions Chest X-Ray 04/19/23 11:05 IMPRESSION: Focal opacities in the left upper lobe suggesting infiltrates however demonstrate a somewhat nodular appearance. A repeat chest radiograph following termination of treatment for pneumonia is recommended to assess for resolution. If these findings do not resolve a chest CT scan is recommended. Chest CT 04/19/23 13:48 IMPRESSION: 1. Left upper lobe parahilar ill-defined mass with postobstructive peripheral atelectasis. Recommend CT-guided biopsy 2. No abnormal mediastinal or axillary lymph nodes seen. 3. Moderate-sized hiatal hernia. Fleischner guidelines were followed. Medications Medications Current Medications Acetaminophen (Acetaminophen 325 Mg Tablet) 650 mg PO Q4H PRN PRN Reason: PAIN OR FEVER Last Admin: 04/18/23 23:20 Dose: 650 mg Al Hydroxide/Mg Hydroxide (Magnesium Hydrox/Alum Hydrox 30 Ml Oral.Susp) 30 ml PO Q6H PRN PRN Reason: Heartburn/Nausea Divalproex Sodium (Divalproex Sodium 250 Mg Tablet.) 250 mg PO BEDTIME [facility] Last Admin: 04/20/23 20:42 Dose: 250 mg Hydroxyzine HCl (Hydroxyzine Hcl 25 Mg Tablet) 25 mg PO Q6H PRN PRN Reason: Anxiety Last Admin: 04/18/23 22:37 Dose: 25 mg Insulin Glargine (Insulin Glargine,Hum.Rec.Anlog 100 Unit/Ml 10 Ml Vial) 6 unit SUBCUT BEDTIME [facility] Last Admin: 04/20/23 20:43 Dose: 6 unit Lamotrigine (Lamotrigine 25 Mg Tablet) 75 mg PO BID [facility] Last Admin: 04/21/23 09:16 Dose: 75 mg Magnesium Hydroxide (Milk Of Magnesia 30 Ml Oral.Susp) 30 ml PO DAILY PRN PRN Reason: Constipation Metoprolol Tartrate (Metoprolol Tartrate 25 Mg Tablet) 25 mg PO BID [facility]; Protocol Last Admin: 04/21/23 09:20 Dose: 25 mg Omeprazole (Omeprazole 20 Mg Capsule.) 20 mg PO DAILY@0630 [facility] Last Admin: 04/21/23 05:56 Dose: 20 mg Pravastatin Sodium (Pravastatin Sodium 40 Mg Tablet) 40 mg PO BEDTIME [facility] Last Admin: 04/20/23 20:42 Dose: 40 mg Quetiapine Fumarate (Quetiapine Fumarate 100 Mg Tablet) 100 mg PO BEDTIME [facility] Last Admin: 04/20/23 20:42 Dose: 100 mg Risperidone (Risperidone 1 Mg Tablet) 1 mg PO BID [facility] Last Admin: 04/21/23 09:16 Dose: 1 mg Simethicone (Simethicone 80 Mg Tab.Chew) 160 mg PO Q4H PRN PRN Reason: Dyspepsia Trazodone HCl (Trazodone Hcl 50 Mg Tablet) 150 mg PO BEDTIME [facility] Last Admin: 04/20/23 20:43 Dose: 150 mg Vitamin D (Cholecalciferol (Vitamin D3) 25 Mcg Tablet) 25 mcg PO DAILY [facility] Last Admin: 04/21/23 09:16 Dose: 25 mcg Allergies Allergies Allergy/AdvReac Type Severity Reaction Status Date / Time latex Allergy Unknown Verified 04/12/23 15:01 Sulfa (Sulfonamide Allergy Unknown Verified 04/12/23 15:01 Antibiotics) Assessment & Plan Assessment & Plan (1) Major 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 Gandara is a 82 year-old woman with hx of schizophrenia since 1973. Pt also with major neurocognitive disorder. She lives in SNF, brought on sect 12 due to pt presenting as increasingly more parnaoid, refusing food and medications, aggressive towards staff at SNF. She does have UTI but note that per daughter, this has been usual presentation of exacerbation of schizophrenia. She has not had any food or fluids. She has taken medications. PLAN 1. Need inpatient level of care for safety, containment and stabilization. Pt appears gravely disable due to underlying paranoid and psychosis. 2. continue current medication, except for benadryl TID as it may worsened confusion. 04/15- continue tx. monitor intake. labs this morning BUN decreased from 35 to 19. 04/16 continue current medications. 04/18/2023: No changes to current plan. 04/19- Pt had EKG- that shows tachycardia, prolonged QRS complex 114, QTc 553ms last night. Today's EKG shows Qtc 470ms. EKGs reviewed by sourcer, Dr. Mccoy- no new changes to indicate acute ischemia. Troponin on 04/19 less than 6. Cardiology recommends to monitor QTc with seroquel although pt appears to tolerate it. Cardiology also recommends to increase metoprolol to 25mg po BID. This morning chest XR- left upper nodule versus infection- Note that pt's O2sat is stable on room air >97, no cough, no SOB, no nasal symptoms no other symptoms of respiratory infection. CBC- without leukocytosis, CMP- unremarkable. improved renal function as pt has been eating better. 04/20 will switch gradually seroquel to risperidone- monitor EPS, groundwater monitoring technician QTC as it is slightly prolonged, better than previous night. 04/21 continue tx. will check EKG in few days. Reason for continued inpatient stay Substantial Risk for: inability to function Time Spent With Patient Time: Total time managing care of this patient today ____ minutes.
[2023-04-21 20:25] VITALS: BP 145/88; PULSE 95; RESP 18; TEMP 36.7; O2SAT 96
[2023-04-21] MEDS: Divalproex Sodium 250 MG TABLET.DR PO (20:33)
[2023-04-21] MEDS: Pravastatin Sodium 40 MG TABLET PO (20:33)
[2023-04-21] MEDS: traZODone HCL 50 MG TABLET 150 MG PO (20:34)
[2023-04-21] MEDS: Insulin Glargine,Hum.rec.anlog 100 UNIT/ML 10 ML VIAL 6 UNIT SUBCUT (20:35)
[2023-04-22 08:20] VITALS: BP 135/62; PULSE 70; RESP 20; TEMP 36.1; O2SAT 98
[2023-04-22] MEDS: lamoTRIgine 25 MG TABLET 75 MG PO ×2 (08:24→20:40)
[2023-04-22] MEDS: Cholecalciferol (Vitamin D3) 25 MCG TABLET PO (08:24)
--- NOTE | 2023-04-22 12:38 | HO.PSYCHPN ---
Subjective Subjective Date of Service: 04/22/23 Reason For Visit: paranoid, not eating Subjective Notes: Section 7 Interim History: Pt slept through the night. Pt has been more visible on the unit, and less guarded. Her hygiene is improving. She is showering. She still talks about others talking about her. She denies SI/HI. She continues to report that she needs to go to her own apartment, although she does not have one. She denies physical concerns. She has been taking medications as prescribed. Her BP has been elevated SBP 170-150. She is currently on metoprolol 25mg po BID. Will add amlodipine 2.5mg po daily. Review of Systems Review of Systems ROS limited due to patient's acute mental status Yes all other systems are reviewed and are negative and Unobtainable due to mental status Constitutional: Reports as per [facility] Mental Status Exam Mental Status Exam Narrative: Appearance: casually groomed, good hygiene, in NAD behavior: less guarded, superficially cooperative Psychomotor: no retardation or agitation noted Speech: clear, regular response rate, more spontaneous TP: more linear TC: suspicious, wanting to leave hospital Mood: fine Affect: less suspicious Si: denies HI: denies VH/AH: denies Insight/judgment: poor x 2. Memory/cog: alert, oriented to place, not situation. Pending [facility] Diagnostics Vital Signs (24Hr): Vital Signs - 24 hr 04/21/23 20:25 Temperature 98.1 F Pulse Rate 95 Respiratory Rate 18 Blood Pressure 145/88 H Pulse Oximetry 96 Oxygen Delivery Method Room Air BMI result Body Mass Index 25.4 Labs 04/19/23 12:14 04/19/23 12:14 Labs: Laboratory Results - last 48 hr 04/21/23 04/22/23 04/22/23 07:43 07:47 11:47 POC Glucose 137 H 126 H 279 H Imaging Radiology Impressions: ITS Impressions Chest X-Ray 04/19/23 11:05 IMPRESSION: Focal opacities in the left upper lobe suggesting infiltrates however demonstrate a somewhat nodular appearance. A repeat chest radiograph following termination of treatment for pneumonia is recommended to assess for resolution. If these findings do not resolve a chest CT scan is recommended. Chest CT 04/19/23 13:48 IMPRESSION: 1. Left upper lobe parahilar ill-defined mass with postobstructive peripheral atelectasis. Recommend CT-guided biopsy 2. No abnormal mediastinal or axillary lymph nodes seen. 3. Moderate-sized hiatal hernia. Fleischner guidelines were followed. Medications Medications Current Medications Acetaminophen (Acetaminophen 325 Mg Tablet) 650 mg PO Q4H PRN PRN Reason: PAIN OR FEVER Last Admin: 04/18/23 23:20 Dose: 650 mg Al Hydroxide/Mg Hydroxide (Magnesium Hydrox/Alum Hydrox 30 Ml Oral.Susp) 30 ml PO Q6H PRN PRN Reason: Heartburn/Nausea Divalproex Sodium (Divalproex Sodium 250 Mg Tablet.) 250 mg PO BEDTIME [facility] Last Admin: 04/21/23 20:33 Dose: 250 mg Hydroxyzine HCl (Hydroxyzine Hcl 25 Mg Tablet) 25 mg PO Q6H PRN PRN Reason: Anxiety Last Admin: 04/18/23 22:37 Dose: 25 mg Insulin Glargine (Insulin Glargine,Hum.Rec.Anlog 100 Unit/Ml 10 Ml Vial) 6 unit SUBCUT BEDTIME [facility] Last Admin: 04/21/23 20:35 Dose: 6 unit Lamotrigine (Lamotrigine 25 Mg Tablet) 75 mg PO BID [facility] Last Admin: 04/22/23 08:24 Dose: 75 mg Magnesium Hydroxide (Milk Of Magnesia 30 Ml Oral.Susp) 30 ml PO DAILY PRN PRN Reason: Constipation Metoprolol Tartrate (Metoprolol Tartrate 25 Mg Tablet) 25 mg PO BID [facility]; Protocol Last Admin: 04/22/23 08:25 Dose: 25 mg Omeprazole (Omeprazole 20 Mg Capsule.) 20 mg PO DAILY@0630 [facility] Last Admin: 04/22/23 05:33 Dose: 20 mg Pravastatin Sodium (Pravastatin Sodium 40 Mg Tablet) 40 mg PO BEDTIME [facility] Last Admin: 04/21/23 20:33 Dose: 40 mg Quetiapine Fumarate (Quetiapine Fumarate 100 Mg Tablet) 100 mg PO BEDTIME [facility] Last Admin: 04/21/23 20:34 Dose: 100 mg Risperidone (Risperidone 1 Mg Tablet) 1 mg PO BID [facility] Last Admin: 04/22/23 08:24 Dose: 1 mg Simethicone (Simethicone 80 Mg Tab.Chew) 160 mg PO Q4H PRN PRN Reason: Dyspepsia Trazodone HCl (Trazodone Hcl 50 Mg Tablet) 150 mg PO BEDTIME [facility] Last Admin: 04/21/23 20:34 Dose: 150 mg Vitamin D (Cholecalciferol (Vitamin D3) 25 Mcg Tablet) 25 mcg PO DAILY [facility] Last Admin: 04/22/23 08:24 Dose: 25 mcg Allergies Allergies Allergy/AdvReac Type Severity Reaction Status Date / Time latex Allergy Unknown Verified 04/12/23 15:01 Sulfa (Sulfonamide Allergy Unknown Verified 04/12/23 15:01 Antibiotics) Assessment & Plan Assessment & Plan (1) Major 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 Gandara is a 82 year-old woman with hx of schizophrenia since 1973. Pt also with major neurocognitive disorder. She lives in SNF, brought on sect 12 due to pt presenting as increasingly more parnaoid, refusing food and medications, aggressive towards staff at SNF. She does have UTI but note that per daughter, this has been usual presentation of exacerbation of schizophrenia. She has not had any food or fluids. She has taken medications. PLAN 1. Need inpatient level of care for safety, containment and stabilization. Pt appears gravely disable due to underlying paranoid and psychosis. 2. continue current medication, except for benadryl TID as it may worsened confusion. 04/15- continue tx. monitor intake. labs this morning BUN decreased from 35 to 19. 04/16 continue current medications. 04/18/2023: No changes to current plan. 04/19- Pt had EKG- that shows tachycardia, prolonged QRS complex 114, QTc 553ms last night. Today's EKG shows Qtc 470ms. EKGs reviewed by flap maker, Dr. Mccoy- no new changes to indicate acute ischemia. Troponin on 04/19 less than 6. Cardiology recommends to monitor QTc with seroquel although pt appears to tolerate it. Cardiology also recommends to increase metoprolol to 25mg po BID. This morning chest XR- left upper nodule versus infection- Note that pt's O2sat is stable on room air >97, no cough, no SOB, no nasal symptoms no other symptoms of respiratory infection. CBC- without leukocytosis, CMP- unremarkable. improved renal function as pt has been eating better. 04/20 will switch gradually seroquel to risperidone- monitor EPS, golf stud riveter QTC as it is slightly prolonged, better than previous night. 04/21 continue tx. will check EKG in few days. 04/20 will add amlodipine 2.5mg po daily. continue all other medications- will recheck EKG in few days. monitor QTc Reason for continued inpatient stay Substantial Risk for: inability to function Time Spent With Patient Time: Total time managing care of this patient today ____ minutes.
[2023-04-22 13:30] VITALS: BP 124/60; PULSE 71
[2023-04-22 14:51] VITALS: BMI 28.0
[2023-04-22 18:00] VITALS: BP 148/94; PULSE 94; RESP 18; TEMP 36.7; O2SAT 99
[2023-04-22] MEDS: traZODone HCL 50 MG TABLET 150 MG PO (20:39)
[2023-04-22] MEDS: Pravastatin Sodium 40 MG TABLET PO (20:40)
[2023-04-22] MEDS: Divalproex Sodium 250 MG TABLET.DR PO (20:41)
[2023-04-22] MEDS: Insulin Glargine,Hum.rec.anlog 100 UNIT/ML 10 ML VIAL 6 UNIT SUBCUT (21:27)
[2023-04-23 06:00] VITALS: BP 154/60; PULSE 75; RESP 18; TEMP 36.6; O2SAT 97
--- NOTE | 2023-04-23 06:43 | PC.NURSE ---
Patient is alert/cooperative although paranoid about people and medications. States she is scared looks teary eyed. She states she doesnt know whats going to happen to her. She sleeps very lightly and is very concerned about the staff coming into her room because she doesnt know who they are or what they want. She states she sleeps durring the day because she doesnt sleep much at night. She is independent in ADL's and in the milieu being social. She talks about her children and grandchildren. She denies pain.
[2023-04-23] MEDS: Cholecalciferol (Vitamin D3) 25 MCG TABLET PO (08:28)
[2023-04-23] MEDS: lamoTRIgine 25 MG TABLET 75 MG PO ×2 (08:28→20:33)
--- NOTE | 2023-04-23 15:30 | HO.PSYCHPN ---
Subjective Subjective Date of Service: 04/23/23 Reason For Visit: paranoid, not eating Subjective Notes: Section 7 Interim History: Pt slept through the night. Pt reports feeling happy here as she likes her roommate. Pt asks if she can live here. This continuity writer explained this is the hospital and sheis doing better so needs to return home. She reports she does not remember name of place where she lived before. She denies SI/HI. Less delusions about being poisoned. No aggression, pt visible and attending groups and social with peers. She is eating well. Review of Systems Review of Systems ROS limited due to patient's acute mental status Yes all other systems are reviewed and are negative and Unobtainable due to mental status Constitutional: Reports as per HPI Mental Status Exam Mental Status Exam Narrative: Appearance: casually groomed, good hygiene, in NAD behavior: less guarded, cooperative Psychomotor: no retardation or agitation noted Speech: clear, regular response rate, more spontaneous TP: more linear TC: feeling comfortable here on the unit, feels safe Mood: fine Affect: tearful at times Si: denies HI: denies VH/AH: denies Insight/judgment: poor x 2. Memory/cog: alert, oriented to place, not situation. Pending MOCA Diagnostics Vital Signs (24Hr): Vital Signs - 24 hr 04/22/23 18:00 04/23/23 06:00 Temperature 98.0 F 97.8 F Pulse Rate 94 75 Respiratory Rate 18 18 Blood Pressure 148/94 H 154/60 H Pulse Oximetry 99 97 Oxygen Delivery Method Room Air Room Air BMI result Body Mass Index 28.0 Labs 04/19/23 12:14 04/19/23 12:14 Labs: Laboratory Results - last 48 hr 04/22/23 04/22/23 04/23/23 07:47 11:47 08:06 POC Glucose 126 H 279 H 181 H Imaging Radiology Impressions: ITS Impressions Chest X-Ray 04/19/23 11:05 IMPRESSION: Focal opacities in the left upper lobe suggesting infiltrates however demonstrate a somewhat nodular appearance. A repeat chest radiograph following termination of treatment for pneumonia is recommended to assess for resolution. If these findings do not resolve a chest CT scan is recommended. Chest CT 04/19/23 13:48 IMPRESSION: 1. Left upper lobe parahilar ill-defined mass with postobstructive peripheral atelectasis. Recommend CT-guided biopsy 2. No abnormal mediastinal or axillary lymph nodes seen. 3. Moderate-sized hiatal hernia. Fleischner guidelines were followed. Medications Medications Current Medications Acetaminophen (Acetaminophen 325 Mg Tablet) 650 mg PO Q4H PRN PRN Reason: PAIN OR FEVER Last Admin: 04/18/23 23:20 Dose: 650 mg Al Hydroxide/Mg Hydroxide (Magnesium Hydrox/Alum Hydrox 30 Ml Oral.Susp) 30 ml PO Q6H PRN PRN Reason: Heartburn/Nausea Amlodipine Besylate (Amlodipine Besylate 2.5 Mg Tablet) 2.5 mg PO DAILY [facility]; Protocol Last Admin: 04/23/23 08:28 Dose: 2.5 mg Divalproex Sodium (Divalproex Sodium 250 Mg Tablet.) 250 mg PO BEDTIME [facility] Last Admin: 04/22/23 20:41 Dose: 250 mg Hydroxyzine HCl (Hydroxyzine Hcl 25 Mg Tablet) 25 mg PO Q6H PRN PRN Reason: Anxiety Last Admin: 04/18/23 22:37 Dose: 25 mg Insulin Glargine (Insulin Glargine,Hum.Rec.Anlog 100 Unit/Ml 10 Ml Vial) 6 unit SUBCUT BEDTIME [facility] Last Admin: 04/22/23 21:27 Dose: 6 unit Lamotrigine (Lamotrigine 25 Mg Tablet) 75 mg PO BID [facility] Last Admin: 04/23/23 08:28 Dose: 75 mg Magnesium Hydroxide (Milk Of Magnesia 30 Ml Oral.Susp) 30 ml PO DAILY PRN PRN Reason: Constipation Metoprolol Tartrate (Metoprolol Tartrate 25 Mg Tablet) 25 mg PO BID [facility]; Protocol Last Admin: 04/23/23 08:28 Dose: 25 mg Omeprazole (Omeprazole 20 Mg Capsule.) 20 mg PO DAILY@0630 [facility] Last Admin: 04/23/23 06:38 Dose: 20 mg Pravastatin Sodium (Pravastatin Sodium 40 Mg Tablet) 40 mg PO BEDTIME [facility] Last Admin: 04/22/23 20:40 Dose: 40 mg Quetiapine Fumarate (Quetiapine Fumarate 100 Mg Tablet) 100 mg PO BEDTIME [facility] Last Admin: 04/22/23 20:40 Dose: 100 mg Risperidone (Risperidone 1 Mg Tablet) 1 mg PO BID [facility] Last Admin: 04/23/23 08:28 Dose: 1 mg Simethicone (Simethicone 80 Mg Tab.Chew) 160 mg PO Q4H PRN PRN Reason: Dyspepsia Trazodone HCl (Trazodone Hcl 100 Mg Tablet) 100 mg PO BEDTIME [facility] Vitamin D (Cholecalciferol (Vitamin D3) 25 Mcg Tablet) 25 mcg PO DAILY [facility] Last Admin: 04/23/23 08:28 Dose: 25 mcg Allergies Allergies Allergy/AdvReac Type Severity Reaction Status Date / Time latex Allergy Unknown Verified 04/12/23 15:01 Sulfa (Sulfonamide Allergy Unknown Verified 04/12/23 15:01 Antibiotics) Assessment & Plan Assessment & Plan (1) Major 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 Gandara is a 82 year-old woman with hx of schizophrenia since 1973. Pt also with major neurocognitive disorder. She lives in SNF, brought on sect 12 due to pt presenting as increasingly more parnaoid, refusing food and medications, aggressive towards staff at SNF. She does have UTI but note that per daughter, this has been usual presentation of exacerbation of schizophrenia. She has not had any food or fluids. She has taken medications. PLAN 1. Need inpatient level of care for safety, containment and stabilization. Pt appears gravely disable due to underlying paranoid and psychosis. 2. continue current medication, except for benadryl TID as it may worsened confusion. 04/15- continue tx. monitor intake. labs this morning BUN decreased from 35 to 19. 04/16 continue current medications. 04/18/2023: No changes to current plan. 04/19- Pt had EKG- that shows tachycardia, prolonged QRS complex 114, QTc 553ms last night. Today's EKG shows Qtc 470ms. EKGs reviewed by tandem mill roller, Dr. Mccoy- no new changes to indicate acute ischemia. Troponin on 04/19 less than 6. Cardiology recommends to monitor QTc with seroquel although pt appears to tolerate it. Cardiology also recommends to increase metoprolol to 25mg po BID. This morning chest XR- left upper nodule versus infection- Note that pt's O2sat is stable on room air >97, no cough, no SOB, no nasal symptoms no other symptoms of respiratory infection. CBC- without leukocytosis, CMP- unremarkable. improved renal function as pt has been eating better. 04/20 will switch gradually seroquel to risperidone- monitor EPS, monitoring tech QTC as it is slightly prolonged, better than previous night. 04/21 continue tx. will check EKG in few days. 04/20 will add amlodipine 2.5mg po daily. continue all other medications- will recheck EKG in few days. monitor QTc 04/23 plan for d/c Thursday 04/26. will decrease trazodone to 100mg po qhs. continue seroquel and risperidone. recheck ekg tomorrow- monitor QTC. if Qtc prolonged, switch trazodone to remeron, lower seroquel. Reason for continued inpatient stay Substantial Risk for: stable for discharge Time Spent With Patient Time: Total time managing care of this patient today ____ minutes.
[2023-04-23 18:00] VITALS: BP 173/79; PULSE 100; RESP 20; TEMP 36.1; O2SAT 100
[2023-04-23] MEDS: Divalproex Sodium 250 MG TABLET.DR PO (20:32)
[2023-04-23] MEDS: Pravastatin Sodium 40 MG TABLET PO (20:33)
[2023-04-23] MEDS: Insulin Glargine,Hum.rec.anlog 100 UNIT/ML 10 ML VIAL 6 UNIT SUBCUT (20:36)
--- NOTE | 2023-04-24 05:28 | PM.PSYDC ---
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: Status: Acute DS: Medications Discharge Medications Home Medications: Home Medications Medication Instructions Recorded Confirmed Lactobacillus acidophilus 1 cap PO DAILY 04/12/23 04/12/23 acetaminophen 325 mg tablet 650 mg PO Q4H PRN PAIN OR FEVER 04/12/23 04/12/23 cholecalciferol (vitamin D3) 25 25 mcg PO DAILY 04/12/23 04/12/23 mcg (1,000 unit) tablet divalproex 250 mg tablet,delayed 250 mg PO BEDTIME 04/12/23 04/12/23 release (Depakote) insulin glargine 100 unit/mL (3 6 unit subcut BEDTIME 04/12/23 04/12/23 mL) subcutaneous pen (Basaglar KwikPen U-100 Insulin) lamotrigine 150 mg tablet 75 mg PO BID 04/12/23 04/12/23 pravastatin 40 mg tablet 40 mg PO BEDTIME 04/12/23 04/12/23 Previous Rx's Medication Instructions Recorded amlodipine 2.5 mg tablet 2.5 mg PO DAILY #0 tabs 04/24/23 metoprolol tartrate 25 mg tablet 25 mg PO BID #0 tabs 04/24/23 mirtazapine 15 mg tablet 15 mg PO BEDTIME #0 tabs 04/24/23 omeprazole 20 mg capsule,delayed 20 mg PO DAILY@0630 #0 caps 04/24/23 release quetiapine 100 mg tablet 100 mg PO BEDTIME #0 tabs 04/24/23 risperidone 1 mg tablet 1 mg PO BID #0 tabs 04/24/23 simethicone 80 mg chewable tablet 160 mg PO Q4H PRN Dyspepsia #0 tabs 04/24/23 (Gas Relief (simethicone)) Mental Status Exam Mental Status Exam Narrative: Appearance: casually groomed, good hygiene, in NAD behavior: less guarded, cooperative Psychomotor: no retardation or agitation noted Speech: clear, regular response rate, more spontaneous TP: more linear TC: feeling comfortable here on the unit, feels safe Mood: fine Affect: tearful at times Si: denies HI: denies VH/AH: denies Insight/judgment: poor x 2. Memory/cog: alert, oriented to place, not situation. Pending MOCA Data Data Completed and Pending Completed studies during hospitalization [Text1]: 04/17/23 04/18/23 04/18/23 07:39 07:27 20:45 WBC RBC Hgb Hct MCV MCH MCHC RDW Plt Count MPV Immature Gran % (Auto) Neut % (Auto) Lymph % (Auto) [place] % (Auto) Eos % (Auto) Baso % (Auto) Lymph # (Auto) [place] # (Auto) Eos # (Auto) Baso # (Auto) Abs Immat Gran (auto) Absolute Neuts (auto) Absolute Nucleated RBC Nucleated RBC % (auto) Sodium Potassium Chloride Carbon Dioxide Anion Gap BUN Creatinine Estim Creat Clear Calc Estimated GFR POC Glucose 129 H 113 143 H Random Glucose Calcium Magnesium Total Bilirubin AST ALT Alkaline Phosphatase Troponin I High Sens Total Protein Albumin 04/19/23 04/19/23 04/19/23 08:15 11:36 12:14 WBC 5.6 RBC 3.93 L Hgb 12.1 Hct 37.0 MCV 94.1 MCH 30.8 MCHC 32.7 RDW 12.2 Plt Count 207 MPV 9.3 L Immature Gran % (Auto) 0.2 Neut % (Auto) 65.6 Lymph % (Auto) 24.1 [place] % (Auto) 8.5 Eos % (Auto) 1.1 Baso % (Auto) 0.5 Lymph # (Auto) 1.3 [place] # (Auto) 0.5 Eos # (Auto) 0.1 Baso # (Auto) 0.0 Abs Immat Gran (auto) 0.01 Absolute Neuts (auto) 3.6 Absolute Nucleated RBC 0.000 Nucleated RBC % (auto) 0.0 Sodium Potassium Chloride Carbon Dioxide Anion Gap BUN Creatinine Estim Creat Clear Calc Estimated GFR POC Glucose 122 H 230 H Random Glucose Calcium Magnesium Total Bilirubin AST ALT Alkaline Phosphatase Troponin I High Sens Total Protein Albumin 04/19/23 04/19/23 04/20/23 12:14 12:14 07:32 WBC RBC Hgb Hct MCV MCH MCHC RDW Plt Count MPV Immature Gran % (Auto) Neut % (Auto) Lymph % (Auto) [place] % (Auto) Eos % (Auto) Baso % (Auto) Lymph # (Auto) [place] # (Auto) Eos # (Auto) Baso # (Auto) Abs Immat Gran (auto) Absolute Neuts (auto) Absolute Nucleated RBC Nucleated RBC % (auto) Sodium 143 Potassium 4.0 Chloride 108 Carbon Dioxide 28 Anion Gap 11 L BUN 13 Creatinine 0.95 Estim Creat Clear Calc 37.9 Estimated GFR 57 POC Glucose 137 H Random Glucose 237 H Calcium 9.1 Magnesium 2.0 Total Bilirubin 0.3 AST 14 ALT 12 Alkaline Phosphatase 52 Troponin I High Sens 6.2 Total Protein 6.3 L Albumin 3.2 L 04/21/23 04/22/23 04/22/23 07:43 07:47 11:47 WBC RBC Hgb Hct MCV MCH MCHC RDW Plt Count MPV Immature Gran % (Auto) Neut % (Auto) Lymph % (Auto) [place] % (Auto) Eos % (Auto) Baso % (Auto) Lymph # (Auto) [place] # (Auto) Eos # (Auto) Baso # (Auto) Abs Immat Gran (auto) Absolute Neuts (auto) Absolute Nucleated RBC Nucleated RBC % (auto) Sodium Potassium Chloride Carbon Dioxide Anion Gap BUN Creatinine Estim Creat Clear Calc Estimated GFR POC Glucose 137 H 126 H 279 H Random Glucose Calcium Magnesium Total Bilirubin AST ALT Alkaline Phosphatase Troponin I High Sens Total Protein Albumin 04/23/23 08:06 WBC RBC Hgb Hct MCV MCH MCHC RDW Plt Count MPV Immature Gran % (Auto) Neut % (Auto) Lymph % (Auto) [place] % (Auto) Eos % (Auto) Baso % (Auto) Lymph # (Auto) [place] # (Auto) Eos # (Auto) Baso # (Auto) Abs Immat Gran (auto) Absolute Neuts (auto) Absolute Nucleated RBC Nucleated RBC % (auto) Sodium Potassium Chloride Carbon Dioxide Anion Gap BUN Creatinine Estim Creat Clear Calc Estimated GFR POC Glucose 181 H Random Glucose Calcium Magnesium Total Bilirubin AST ALT Alkaline Phosphatase Troponin I High Sens Total Protein Albumin 04/19/23 08:57 Blood - Venous Blood Culture - Preliminary No growth after 48 hours. 04/19/23 08:57 Blood - Venous Blood Culture - Preliminary No growth after 48 hours. 04/12/23 Unknown Urine clean catch - Urine jiang top Urine Culture - Final Imaging Diagnostic Imaging Impressions Chest X-Ray 04/19/23 11:05 IMPRESSION: Focal opacities in the left upper lobe suggesting infiltrates however demonstrate a somewhat nodular appearance. A repeat chest radiograph following termination of treatment for pneumonia is recommended to assess for resolution. If these findings do not resolve a chest CT scan is recommended. Chest CT 04/19/23 13:48 IMPRESSION: 1. Left upper lobe parahilar ill-defined mass with postobstructive peripheral atelectasis. Recommend CT-guided biopsy 2. No abnormal mediastinal or axillary lymph nodes seen. 3. Moderate-sized hiatal hernia. Fleischner guidelines were followed. DS: Summary Hospital Course Hospital Course: Mrs. Gandara is a 82 year-old with hx of schizophrenia and dementia who lives in SNF [facility] brought to [facility] ED on section 12a due to increase agitation paranoid towards staff thinking that they are poisoning her, refusing to eat and take medications. In the ED, cbc with slightly elevated WBC 11. CMP with elevation of BUN 35, Cr 1.38. Slight elevation of AST. UA does show infection she is on Cephalexin 500mg po QID. Utox is negative. On the unit, pt presents as more talkative. She reports she feels fine. She is able to tell that she is in the hospital. She reports she does not know why she was brought here. She denies suicidal or homicidal ideation. She continues to declined food, stating she is not hungry. She has been taking medications mostly as prescribed. No behavioral concerns. Collateral information gathered from the mother who reports pt has long hx of schizophrenia since 1973 and usually theme of paranoid delusions of being poisoned. Daughter reports currently pt presenting with usual exacerbation of psychiatric illness. Past Psychiatric History: Inpt: multiple in the past.? OP: through [facility]. Past medication trials: olanzapine (became more confused and over sedated), seroquel, depakote. Medical Evaluation Reviewed: Yes HOSPITAL COURSE On the unit, pt was admitted on a section 12b. Pt presented as guarded, paranoid about being accused of something she had not done, worried that people were trying to harm her. Pt was not eating and sleep was disrupted. However, pt agreed to take medications. Pt was initially continued on seroquel 150mg po BID. However, she continued to present with paranoid delusions and somewhat sedated during the day. Seroquel was decrease to 100mg po qhs and patient was started on risperidone 1mg po BID. She was continued on lamictal 75mg po BID, although unclear benefit of this medications. She was also continued on depakote 250mg po qhs. Recommend outpatient considering, tapering off lamictal to avoid polypharmacy, btu for now will continue. Trazodone was discontinued mostly to avoid adding medications that can prolonged Qtc given that pt does have tendency to have prolonged Qtc. She was started instead on remeron 15mg po qhs for sleep and mood. No cogwheel, or rigidity was noted with antipsychotic. no perioral involuntary movement noted either. She does seem to have a leg tremor, not akathisia as mostly evident when right leg not touching floor or when pt lying in bed. Not accompanied by need to pace or subjective feeling of restlessness. Per daughter, pt has had this tremor for decades even before she had antipsychotic medication. Propanolol may be more effective but will defer to outpatient. In the event, propanolol is consider consult cardiology to see of switching metoprolol to propanolol rather than adding another betablocker. Medically- pt continued to present with episodes of tachycardia. Cardiology recommended to increase metoprolol to 25mg po BID. She was also started on low dose amlodipine 2.5mg po daily due to HTN. There was incidental finding in chest CT of Left upper lobe parahilar ill-defined mass with postobstructive peripheral atelectasis. Recommend CT-guided biopsy which needs to be followed up outpatient. Note that pt also has moderate size hiatal hernia and was started on omeprazole. Her affect gradually presented as much brighter, much less paranoid. Much more interactive with peers and staff. She was visible on the unit, social with select peers and attended groups. Her ability to retain information and memory are impaired in addition to her long standing mental illness of schizophrenia. Pt was not disruptive nor required restraints while on the unit. Time spent discussing smoking cessation with patient: 3 to 10 minutes Status at Discharge Cognitive/behavioral status at discharge: Pt with brighter, non labile affect. No SI/HI. Much less paranoia. No aggression towards self or others. Sleeping and eating well. social and visible on the unit. She took medications as prescribed. Functional status at discharge: independent ambulation Time Spent with Patient Time attestation: Total time managing care of this patient today ____ minutes. Discharge Plan Discharge Anticipated Discharge Date/Time: 04/26/23 09:00 Patient Disposition: Home, Self-Care Discharge Diagnosis: schizophrenia Major neurocognitive disorder Referrals: Mark Anthony Curiel MD [Primary Care Provider] - 1 Week Discharge Medications: New amlodipine 2.5 mg Tablet 2.5 mg PO DAILY Qty: 0 0RF Protocol: Hold for SBP< HOLD for SBP < : 90 metoprolol tartrate 25 mg Tablet 25 mg PO BID Qty: 0 0RF Protocol: Hold for SBP/HR < HOLD for SBP < : 90 HOLD for HR < : 60 quetiapine 100 mg Tablet 100 mg PO BEDTIME Qty: 0 0RF mirtazapine 15 mg Tablet 15 mg PO BEDTIME Qty: 0 0RF risperidone 1 mg Tablet 1 mg PO BID Qty: 0 0RF omeprazole 20 mg Capsule,Delayed Release(Dr/Ec) 20 mg PO DAILY@0630 Qty: 0 0RF simethicone [Gas Relief (simethicone)] 80 mg Tablet,Chewable 160 mg PO Q4H PRN (Reason: Dyspepsia) Qty: 0 0RF Continued lamotrigine 150 mg Tablet 75 mg PO BID acetaminophen 325 mg Tablet 650 mg PO Q4H PRN (Reason: PAIN OR FEVER) divalproex [Depakote] 250 mg Tablet,Delayed Release (Dr/Ec) 250 mg PO BEDTIME pravastatin 40 mg Tablet 40 mg PO BEDTIME Lactobacillus acidophilus Capsule 1 cap PO DAILY cholecalciferol (vitamin D3) 25 mcg (1,000 unit) Tablet 25 mcg PO DAILY insulin glargine [Basaglar KwikPen U-100 Insulin] 100 unit/mL (3 mL) insulin pen 6 unit subcut BEDTIME Discontinued clonazepam 0.5 mg tablet 0.5 mg PO BEDTIME cephalexin 500 mg capsule 500 mg PO QID Rx Instructions: x 7 days, finished 04/18/23 trazodone 150 mg Tablet 150 mg PO BEDTIME diphenhydramine HCl 25 mg Tablet 12.5 mg PO TID simethicone 50 mg/5 mL Suspension 300 mg PO Q4H PRN (Reason: Dyspepsia) metoprolol succinate 25 mg Tablet Extended Release 24 Hr 25 mg PO DAILY quetiapine 50 mg tablet 150 mg PO BID Discharge Orders: Discharge Order (Routine); Ordered 04/26/23 Ordered By: Dafne Gary Diet: Diabetic diet Activity on Discharge: As tolerated Stand Alone Forms: Patient Portal Discharge page Care Plan Goals: 1. Maintain mood 2. No SI/HI 3. Less paranoia, less AH/VH Health Concerns: Pt needs to follow up with pulmonology regarding left upper lung nodule recommended guided CT biopsy. Plan of Treatment: 1. Take medications as prescribed 2. Go to nearest ED or call 911 in event of emergency Assessment: Pt with brighter affect, non labile. Much less paranoid delusions, no SI/HI. improved oral intake and sleep. No aggression towards self or others. Discharge Date/Time: 04/26/23 13:10
[2023-04-24 07:55] VITALS: BP 147/68; PULSE 77; RESP 20; TEMP 36.3; O2SAT 98
[2023-04-24] MEDS: Cholecalciferol (Vitamin D3) 25 MCG TABLET PO (07:58)
[2023-04-24] MEDS: lamoTRIgine 25 MG TABLET 75 MG PO ×2 (07:59→08:40)
--- NOTE | 2023-04-24 11:36 | HO.PSYCHPN ---
Subjective Subjective Date of Service: 04/24/23 Reason For Visit: paranoid, not eating Interim History: calm, cooperative. poor cognitive performance. asking to see her RN, message relayed. no other complaints or requests made. Mental Status Exam Mental Status Exam Narrative: Appearance: casually groomed, good hygiene, in NAD behavior: less guarded, cooperative Psychomotor: no retardation or agitation noted Speech: clear, regular response rate, more spontaneous TP: more linear TC: feeling comfortable here on the unit, feels safe Mood: not assessed Affect: constricted, normo-intense, non-labile Si: none expressed HI: none expressed VH/AH: none expressed Insight/judgment: poor x 2. Memory/cog: alert, oriented to place, not situation. Pending MOCA Diagnostics Vital Signs (24Hr): Vital Signs - 24 hr 04/23/23 18:00 04/24/23 07:55 Temperature 96.9 F 97.3 F Pulse Rate 100 77 Respiratory Rate 20 20 Blood Pressure 173/79 H 147/68 H Pulse Oximetry 100 98 Oxygen Delivery Method Room Air Room Air BMI result Body Mass Index 28.0 Labs 04/19/23 12:14 04/19/23 12:14 Labs: Laboratory Results - last 48 hr 04/22/23 04/23/23 04/24/23 11:47 08:06 07:40 POC Glucose 279 H 181 H 116 H Imaging Radiology Impressions: ITS Impressions Chest X-Ray 04/19/23 11:05 IMPRESSION: Focal opacities in the left upper lobe suggesting infiltrates however demonstrate a somewhat nodular appearance. A repeat chest radiograph following termination of treatment for pneumonia is recommended to assess for resolution. If these findings do not resolve a chest CT scan is recommended. Chest CT 04/19/23 13:48 IMPRESSION: 1. Left upper lobe parahilar ill-defined mass with postobstructive peripheral atelectasis. Recommend CT-guided biopsy 2. No abnormal mediastinal or axillary lymph nodes seen. 3. Moderate-sized hiatal hernia. Fleischner guidelines were followed. Medications Medications Current Medications Acetaminophen (Acetaminophen 325 Mg Tablet) 650 mg PO Q4H PRN PRN Reason: PAIN OR FEVER Last Admin: 04/18/23 23:20 Dose: 650 mg Al Hydroxide/Mg Hydroxide (Magnesium Hydrox/Alum Hydrox 30 Ml Oral.Susp) 30 ml PO Q6H PRN PRN Reason: Heartburn/Nausea Amlodipine Besylate (Amlodipine Besylate 2.5 Mg Tablet) 2.5 mg PO DAILY [facility]; Protocol Last Admin: 04/24/23 07:59 Dose: 2.5 mg Divalproex Sodium (Divalproex Sodium 250 Mg Tablet.) 250 mg PO BEDTIME [facility] Last Admin: 04/23/23 20:32 Dose: 250 mg Hydroxyzine HCl (Hydroxyzine Hcl 25 Mg Tablet) 25 mg PO Q6H PRN PRN Reason: Anxiety Last Admin: 04/18/23 22:37 Dose: 25 mg Insulin Glargine (Insulin Glargine,Hum.Rec.Anlog 100 Unit/Ml 10 Ml Vial) 6 unit SUBCUT BEDTIME [facility] Last Admin: 04/23/23 20:36 Dose: 6 unit Lamotrigine (Lamotrigine 25 Mg Tablet) 75 mg PO BID [facility] Last Admin: 04/24/23 07:59 Dose: 75 mg Magnesium Hydroxide (Milk Of Magnesia 30 Ml Oral.Susp) 30 ml PO DAILY PRN PRN Reason: Constipation Metoprolol Tartrate (Metoprolol Tartrate 25 Mg Tablet) 25 mg PO BID [facility]; Protocol Last Admin: 04/24/23 07:59 Dose: 25 mg Mirtazapine (Mirtazapine 15 Mg Tablet) 15 mg PO BEDTIME [facility] Last Admin: 04/23/23 20:33 Dose: 15 mg Omeprazole (Omeprazole 20 Mg Capsule.) 20 mg PO DAILY@0630 [facility] Last Admin: 04/24/23 06:29 Dose: 20 mg Pravastatin Sodium (Pravastatin Sodium 40 Mg Tablet) 40 mg PO BEDTIME [facility] Last Admin: 04/23/23 20:33 Dose: 40 mg Quetiapine Fumarate (Quetiapine Fumarate 100 Mg Tablet) 100 mg PO BEDTIME [facility] Last Admin: 04/23/23 20:33 Dose: 100 mg Risperidone (Risperidone 1 Mg Tablet) 1 mg PO BID [facility] Last Admin: 04/24/23 07:58 Dose: 1 mg Simethicone (Simethicone 80 Mg Tab.Chew) 160 mg PO Q4H PRN PRN Reason: Dyspepsia Vitamin D (Cholecalciferol (Vitamin D3) 25 Mcg Tablet) 25 mcg PO DAILY [facility] Last Admin: 04/24/23 07:58 Dose: 25 mcg Allergies Allergies Allergy/AdvReac Type Severity Reaction Status Date / Time latex Allergy Unknown Verified 04/12/23 15:01 Sulfa (Sulfonamide Allergy Unknown Verified 04/12/23 15:01 Antibiotics) Assessment & Plan Assessment & Plan (1) Major 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 Gandara is a 82 year-old woman with hx of schizophrenia since 1973. Pt also with major neurocognitive disorder. She lives in SNF, brought on sect 12 due to pt presenting as increasingly more parnaoid, refusing food and medications, aggressive towards staff at SNF. She does have UTI but note that per daughter, this has been usual presentation of exacerbation of schizophrenia. She has not had any food or fluids. She has taken medications. PLAN 1. Need inpatient level of care for safety, containment and stabilization. Pt appears gravely disable due to underlying paranoid and psychosis. 2. continue current medication, except for benadryl TID as it may worsened confusion. 04/15- continue tx. monitor intake. labs this morning BUN decreased from 35 to 19. 04/16 continue current medications. 04/18/2023: No changes to current plan. 04/19- Pt had EKG- that shows tachycardia, prolonged QRS complex 114, QTc 553ms last night. Today's EKG shows Qtc 470ms. EKGs reviewed by machine long goods helper, Dr. Mccoy- no new changes to indicate acute ischemia. Troponin on 04/19 less than 6. Cardiology recommends to monitor QTc with seroquel although pt appears to tolerate it. Cardiology also recommends to increase metoprolol to 25mg po BID. This morning chest XR- left upper nodule versus infection- Note that pt's O2sat is stable on room air >97, no cough, no SOB, no nasal symptoms no other symptoms of respiratory infection. CBC- without leukocytosis, CMP- unremarkable. improved renal function as pt has been eating better. 04/20 will switch gradually seroquel to risperidone- monitor EPS, rocket scientist QTC as it is slightly prolonged, better than previous night. 04/21 continue tx. will check EKG in few days. 04/20 will add amlodipine 2.5mg po daily. continue all other medications- will recheck EKG in few days. monitor QTc 04/23 plan for d/c Thursday 04/26. will decrease trazodone to 100mg po qhs. continue seroquel and risperidone. recheck ekg tomorrow- monitor QTC. if Qtc prolonged, switch trazodone to remeron, lower seroquel. 04/24: stable presentation. 04/23 EKG with QTc 473. no change to medications regimen. Reason for continued inpatient stay Substantial Risk for: inability to function Time Spent With Patient Time: Total time managing care of this patient today ____ minutes.
[2023-04-24 18:00] VITALS: BP 140/66; PULSE 94; RESP 16; TEMP 36.4; O2SAT 96
[2023-04-24] MEDS: Pravastatin Sodium 40 MG TABLET PO (20:41)
[2023-04-24] MEDS: Insulin Glargine,Hum.rec.anlog 100 UNIT/ML 10 ML VIAL 6 UNIT SUBCUT (20:42)
[2023-04-25 09:00] VITALS: BP 176/87; PULSE 85; RESP 16; TEMP 36.6; O2SAT 97
[2023-04-25] MEDS: Cholecalciferol (Vitamin D3) 25 MCG TABLET PO (09:11)
[2023-04-25] MEDS: lamoTRIgine 25 MG TABLET 75 MG PO ×2 (09:11→22:02)
[2023-04-25] MEDS: Acetaminophen 325 MG TABLET 650 MG PO ×2 (11:05→22:00)
--- NOTE | 2023-04-25 11:46 | HO.PSYCHPN ---
Subjective Subjective Date of Service: 04/25/23 Reason For Visit: paranoid, not eating Interim History: encountered seated at table in milieu with peers. c/o back pain, agreed to take tylenol. no other complaints or requests. per staff, eating and sleeping. no behavioral concerns. BP 176/87 this morning. Mental Status Exam Mental Status Exam Narrative: Appearance: casually groomed, good hygiene, in NAD behavior: less guarded, cooperative Psychomotor: no retardation or agitation noted Speech: clear, regular response rate, more spontaneous TP: more linear TC: feeling comfortable here on the unit, feels safe Mood: not assessed Affect: constricted, normo-intense, non-labile Si: none expressed HI: none expressed VH/AH: none expressed Insight/judgment: poor x 2. Memory/cog: alert, oriented to place, not situation. Pending MOCA Diagnostics Vital Signs (24Hr): Vital Signs - 24 hr 04/24/23 18:00 04/25/23 09:00 Temperature 97.6 F 97.9 F Pulse Rate 94 85 Respiratory Rate 16 16 Blood Pressure 140/66 H 176/87 H Pulse Oximetry 96 97 Oxygen Delivery Method Room Air Room Air BMI result Body Mass Index 28.0 Labs 04/19/23 12:14 04/19/23 12:14 Labs: Laboratory Results - last 48 hr 04/24/23 04/25/23 07:40 07:56 POC Glucose 116 H 117 H Imaging Radiology Impressions: ITS Impressions Chest X-Ray 04/19/23 11:05 IMPRESSION: Focal opacities in the left upper lobe suggesting infiltrates however demonstrate a somewhat nodular appearance. A repeat chest radiograph following termination of treatment for pneumonia is recommended to assess for resolution. If these findings do not resolve a chest CT scan is recommended. Chest CT 04/19/23 13:48 IMPRESSION: 1. Left upper lobe parahilar ill-defined mass with postobstructive peripheral atelectasis. Recommend CT-guided biopsy 2. No abnormal mediastinal or axillary lymph nodes seen. 3. Moderate-sized hiatal hernia. Fleischner guidelines were followed. Medications Medications Current Medications Acetaminophen (Acetaminophen 325 Mg Tablet) 650 mg PO Q4H PRN PRN Reason: PAIN OR FEVER Last Admin: 04/25/23 11:05 Dose: 650 mg Al Hydroxide/Mg Hydroxide (Magnesium Hydrox/Alum Hydrox 30 Ml Oral.Susp) 30 ml PO Q6H PRN PRN Reason: Heartburn/Nausea Amlodipine Besylate (Amlodipine Besylate 2.5 Mg Tablet) 2.5 mg PO DAILY [facility]; Protocol Last Admin: 04/25/23 09:11 Dose: 2.5 mg Divalproex Sodium (Divalproex Sodium 250 Mg Tablet.) 250 mg PO BEDTIME [facility] Last Admin: 04/24/23 20:53 Dose: Not Given Hydroxyzine HCl (Hydroxyzine Hcl 25 Mg Tablet) 25 mg PO Q6H PRN PRN Reason: Anxiety Last Admin: 04/18/23 22:37 Dose: 25 mg Insulin Glargine (Insulin Glargine,Hum.Rec.Anlog 100 Unit/Ml 10 Ml Vial) 6 unit SUBCUT BEDTIME [facility] Last Admin: 04/24/23 20:42 Dose: 6 unit Lamotrigine (Lamotrigine 25 Mg Tablet) 75 mg PO BID [facility] Last Admin: 04/25/23 09:11 Dose: 75 mg Magnesium Hydroxide (Milk Of Magnesia 30 Ml Oral.Susp) 30 ml PO DAILY PRN PRN Reason: Constipation Metoprolol Tartrate (Metoprolol Tartrate 25 Mg Tablet) 25 mg PO BID [facility]; Protocol Last Admin: 04/25/23 09:11 Dose: 25 mg Mirtazapine (Mirtazapine 15 Mg Tablet) 15 mg PO BEDTIME [facility] Last Admin: 04/24/23 20:41 Dose: 15 mg Omeprazole (Omeprazole 20 Mg Capsule.) 20 mg PO DAILY@0630 [facility] Last Admin: 04/25/23 09:11 Dose: 20 mg Pravastatin Sodium (Pravastatin Sodium 40 Mg Tablet) 40 mg PO BEDTIME [facility] Last Admin: 04/24/23 20:41 Dose: 40 mg Quetiapine Fumarate (Quetiapine Fumarate 100 Mg Tablet) 100 mg PO BEDTIME [facility] Last Admin: 04/24/23 20:41 Dose: 100 mg Risperidone (Risperidone 1 Mg Tablet) 1 mg PO BID [facility] Last Admin: 04/25/23 09:11 Dose: 1 mg Simethicone (Simethicone 80 Mg Tab.Chew) 160 mg PO Q4H PRN PRN Reason: Dyspepsia Vitamin D (Cholecalciferol (Vitamin D3) 25 Mcg Tablet) 25 mcg PO DAILY [facility] Last Admin: 04/25/23 09:11 Dose: 25 mcg Allergies Allergies Allergy/AdvReac Type Severity Reaction Status Date / Time latex Allergy Unknown Verified 04/12/23 15:01 Sulfa (Sulfonamide Allergy Unknown Verified 04/12/23 15:01 Antibiotics) Assessment & Plan Assessment & Plan (1) Major 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 Gandara is a 82 year-old woman with hx of schizophrenia since 1973. Pt also with major neurocognitive disorder. She lives in SNF, brought on sect 12 due to pt presenting as increasingly more parnaoid, refusing food and medications, aggressive towards staff at SNF. She does have UTI but note that per daughter, this has been usual presentation of exacerbation of schizophrenia. She has not had any food or fluids. She has taken medications. PLAN 1. Need inpatient level of care for safety, containment and stabilization. Pt appears gravely disable due to underlying paranoid and psychosis. 2. continue current medication, except for benadryl TID as it may worsened confusion. 04/15- continue tx. monitor intake. labs this morning BUN decreased from 35 to 19. 04/16 continue current medications. 04/18/2023: No changes to current plan. 04/19- Pt had EKG- that shows tachycardia, prolonged QRS complex 114, QTc 553ms last night. Today's EKG shows Qtc 470ms. EKGs reviewed by wharf tender helper, Dr. Mccoy- no new changes to indicate acute ischemia. Troponin on 04/19 less than 6. Cardiology recommends to monitor QTc with seroquel although pt appears to tolerate it. Cardiology also recommends to increase metoprolol to 25mg po BID. This morning chest XR- left upper nodule versus infection- Note that pt's O2sat is stable on room air >97, no cough, no SOB, no nasal symptoms no other symptoms of respiratory infection. CBC- without leukocytosis, CMP- unremarkable. improved renal function as pt has been eating better. 04/20 will switch gradually seroquel to risperidone- monitor EPS, school bus monitor QTC as it is slightly prolonged, better than previous night. 04/21 continue tx. will check EKG in few days. 04/20 will add amlodipine 2.5mg po daily. continue all other medications- will recheck EKG in few days. monitor QTc 04/23 plan for d/c Thursday 04/26. will decrease trazodone to 100mg po qhs. continue seroquel and risperidone. recheck ekg tomorrow- monitor QTC. if Qtc prolonged, switch trazodone to remeron, lower seroquel. 04/24: stable presentation. 04/23 EKG with QTc 473. no change to medications regimen. 04/25: stable. c/o back pain, tylenol Rxed. consistently hypertensive, T/C more aggressive BP mgmt. Reason for continued inpatient stay Substantial Risk for: inability to function and rapid decompensation Time Spent With Patient Time: Total time managing care of this patient today ____ minutes.
[2023-04-25 18:00] VITALS: BP 174/87; PULSE 114; RESP 18; TEMP 36.4; O2SAT 97
[2023-04-25] MEDS: Divalproex Sodium 250 MG TABLET.DR PO (21:59)
[2023-04-25] MEDS: Pravastatin Sodium 40 MG TABLET PO (21:59)
[2023-04-25] MEDS: hydrOXYzine HCL 25 MG TABLET PO (21:59)
[2023-04-25] MEDS: Insulin Glargine,Hum.rec.anlog 100 UNIT/ML 10 ML VIAL 6 UNIT SUBCUT (22:05)
[2023-04-26 10:00] VITALS: BP 122/61; PULSE 75; RESP 16; TEMP 37.2; O2SAT 95
[2023-04-26] MEDS: Cholecalciferol (Vitamin D3) 25 MCG TABLET PO (10:20)
[2023-04-26] MEDS: lamoTRIgine 25 MG TABLET 75 MG PO (10:20)
--- NOTE | 2023-04-26 11:00 | PM.PSYDC ---
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: Status: Acute DS: Medications Discharge Medications Home Medications: Home Medications Medication Instructions Recorded Confirmed Lactobacillus acidophilus 1 cap PO DAILY 04/12/23 04/12/23 acetaminophen 325 mg tablet 650 mg PO Q4H PRN PAIN OR FEVER 04/12/23 04/12/23 cholecalciferol (vitamin D3) 25 25 mcg PO DAILY 04/12/23 04/12/23 mcg (1,000 unit) tablet divalproex 250 mg tablet,delayed 250 mg PO BEDTIME 04/12/23 04/12/23 release (Depakote) insulin glargine 100 unit/mL (3 6 unit subcut BEDTIME 04/12/23 04/12/23 mL) subcutaneous pen (Basaglar KwikPen U-100 Insulin) lamotrigine 150 mg tablet 75 mg PO BID 04/12/23 04/12/23 pravastatin 40 mg tablet 40 mg PO BEDTIME 04/12/23 04/12/23 Previous Rx's Medication Instructions Recorded amlodipine 2.5 mg tablet 2.5 mg PO DAILY #0 tabs 04/24/23 metoprolol tartrate 25 mg tablet 25 mg PO BID #0 tabs 04/24/23 mirtazapine 15 mg tablet 15 mg PO BEDTIME #0 tabs 04/24/23 omeprazole 20 mg capsule,delayed 20 mg PO DAILY@0630 #0 caps 04/24/23 release quetiapine 100 mg tablet 100 mg PO BEDTIME #0 tabs 04/24/23 risperidone 1 mg tablet 1 mg PO BID #0 tabs 04/24/23 simethicone 80 mg chewable tablet 160 mg PO Q4H PRN Dyspepsia #0 tabs 04/24/23 (Gas Relief (simethicone)) Mental Status Exam Mental Status Exam Patient Appearance: Well Grooomed Patient Orientation: Person and Situation Level of Consciousness: Awake and Appropriate Patient Behavior: Guarded and Passive Mood Description: Calm Affect Description: Constricted Patient Cognition Impaired: Yes Ability to Follow Directions: Good Speech Pattern: Clear Hallucinations: None Delusions: Paranoid Ideation Thought Process: Distracted and Slowed Thinking Thought Content: positive for [place], positive for Poverty of Content and positive for Thought Blocking Judgement: Fair Data Data Completed and Pending Completed studies during hospitalization [Text1]: 04/19/23 04/19/23 04/19/23 11:36 12:14 12:14 WBC 5.6 RBC 3.93 L Hgb 12.1 Hct 37.0 MCV 94.1 MCH 30.8 MCHC 32.7 RDW 12.2 Plt Count 207 MPV 9.3 L Immature Gran % (Auto) 0.2 Neut % (Auto) 65.6 Lymph % (Auto) 24.1 [place] % (Auto) 8.5 Eos % (Auto) 1.1 Baso % (Auto) 0.5 Lymph # (Auto) 1.3 [place] # (Auto) 0.5 Eos # (Auto) 0.1 Baso # (Auto) 0.0 Abs Immat Gran (auto) 0.01 Absolute Neuts (auto) 3.6 Absolute Nucleated RBC 0.000 Nucleated RBC % (auto) 0.0 Sodium 143 Potassium 4.0 Chloride 108 Carbon Dioxide 28 Anion Gap 11 L BUN 13 Creatinine 0.95 Estim Creat Clear Calc 37.9 Estimated GFR 57 POC Glucose 230 H Random Glucose 237 H Calcium 9.1 Magnesium 2.0 Total Bilirubin 0.3 AST 14 ALT 12 Alkaline Phosphatase 52 Troponin I High Sens Total Protein 6.3 L Albumin 3.2 L 04/19/23 04/20/23 04/21/23 12:14 07:32 07:43 WBC RBC Hgb Hct MCV MCH MCHC RDW Plt Count MPV Immature Gran % (Auto) Neut % (Auto) Lymph % (Auto) [place] % (Auto) Eos % (Auto) Baso % (Auto) Lymph # (Auto) [place] # (Auto) Eos # (Auto) Baso # (Auto) Abs Immat Gran (auto) Absolute Neuts (auto) Absolute Nucleated RBC Nucleated RBC % (auto) Sodium Potassium Chloride Carbon Dioxide Anion Gap BUN Creatinine Estim Creat Clear Calc Estimated GFR POC Glucose 137 H 137 H Random Glucose Calcium Magnesium Total Bilirubin AST ALT Alkaline Phosphatase Troponin I High Sens 6.2 Total Protein Albumin 0704/22/23 04/23/23 07:47 11:47 08:06 WBC RBC Hgb Hct MCV MCH MCHC RDW Plt Count MPV Immature Gran % (Auto) Neut % (Auto) Lymph % (Auto) [place] % (Auto) Eos % (Auto) Baso % (Auto) Lymph # (Auto) [place] # (Auto) Eos # (Auto) Baso # (Auto) Abs Immat Gran (auto) Absolute Neuts (auto) Absolute Nucleated RBC Nucleated RBC % (auto) Sodium Potassium Chloride Carbon Dioxide Anion Gap BUN Creatinine Estim Creat Clear Calc Estimated GFR POC Glucose 126 H 279 H 181 H Random Glucose Calcium Magnesium Total Bilirubin AST ALT Alkaline Phosphatase Troponin I High Sens Total Protein Albumin 04/24/23 04/25/23 07:40 07:56 WBC RBC Hgb Hct MCV MCH MCHC RDW Plt Count MPV Immature Gran % (Auto) Neut % (Auto) Lymph % (Auto) [place] % (Auto) Eos % (Auto) Baso % (Auto) Lymph # (Auto) [place] # (Auto) Eos # (Auto) Baso # (Auto) Abs Immat Gran (auto) Absolute Neuts (auto) Absolute Nucleated RBC Nucleated RBC % (auto) Sodium Potassium Chloride Carbon Dioxide Anion Gap BUN Creatinine Estim Creat Clear Calc Estimated GFR POC Glucose 116 H 117 H Random Glucose Calcium Magnesium Total Bilirubin AST ALT Alkaline Phosphatase Troponin I High Sens Total Protein Albumin 04/19/23 08:57 Blood - Venous Blood Culture - Final No growth after 5 days. 04/19/23 08:57 Blood - Venous Blood Culture - Final No growth after 5 days. 04/12/23 Unknown Urine clean catch - Urine jiang top Urine Culture - Final Imaging Diagnostic Imaging Impressions Chest X-Ray 04/19/23 11:05 IMPRESSION: Focal opacities in the left upper lobe suggesting infiltrates however demonstrate a somewhat nodular appearance. A repeat chest radiograph following termination of treatment for pneumonia is recommended to assess for resolution. If these findings do not resolve a chest CT scan is recommended. Chest CT 04/19/23 13:48 IMPRESSION: 1. Left upper lobe parahilar ill-defined mass with postobstructive peripheral atelectasis. Recommend CT-guided biopsy 2. No abnormal mediastinal or axillary lymph nodes seen. 3. Moderate-sized hiatal hernia. Fleischner guidelines were followed. DS: Summary Hospital Course Hospital Course: Mrs. Gandara is a 82 year-old with hx of schizophrenia and dementia who lives in [facility] brought to [facility] on section 12a due to increase agitation paranoid towards staff thinking that they are poisoning her, refusing to eat and take medications. In the ED, cbc with slightly elevated WBC 11. CMP with elevation of BUN 35, Cr 1.38. Slight elevation of AST. UA does show infection she is on Cephalexin 500mg po QID. Utox is negative. On the unit, pt presents as more talkative. She reports she feels fine. She is able to tell that she is in the hospital. She reports she does not know why she was brought here. She denies suicidal or homicidal ideation. She continues to declined food, stating she is not hungry. She has been taking medications mostly as prescribed. No behavioral concerns. Collateral information gathered from the mother who reports pt has long hx of schizophrenia since 1973 and usually theme of paranoid delusions of being poisoned. Daughter reports currently pt presenting with usual exacerbation of psychiatric illness. Past Psychiatric History: Inpt: multiple in the past.? OP: through [facility]. Past medication trials: olanzapine (became more confused and over sedated), seroquel, depakote. Medical Evaluation Reviewed: Yes HOSPITAL COURSE On the unit, pt was admitted on a section 12b. Pt presented as guarded, paranoid about being accused of something she had not done, worried that people were trying to harm her. Pt was not eating and sleep was disrupted. However, pt agreed to take medications. Pt was initially continued on seroquel 150mg po BID. However, she continued to present with paranoid delusions and somewhat sedated during the day. Seroquel was decrease to 100mg po qhs and patient was started on risperidone 1mg po BID. She was continued on lamictal 75mg po BID, although unclear benefit of this medications. She was also continued on depakote 250mg po qhs. Recommend outpatient considering, tapering off lamictal to avoid polypharmacy, btu for now will continue. Trazodone was discontinued mostly to avoid adding medications that can prolonged Qtc given that pt does have tendency to have prolonged Qtc. She was started instead on remeron 15mg po qhs for sleep and mood. No cogwheel, or rigidity was noted with antipsychotic. no perioral involuntary movement noted either. She does seem to have a leg tremor, not akathisia as mostly evident when right leg not touching floor or when pt lying in bed. Not accompanied by need to pace or subjective feeling of restlessness. Per daughter, pt has had this tremor for decades even before she had antipsychotic medication. Propanolol may be more effective but will defer to outpatient. In the event, propanolol is consider consult cardiology to see of switching metoprolol to propanolol rather than adding another betablocker. Medically- pt continued to present with episodes of tachycardia. Cardiology recommended to increase metoprolol to 25mg po BID. She was also started on low dose amlodipine 2.5mg po daily due to HTN. There was incidental finding in chest CT of Left upper lobe parahilar ill-defined mass with postobstructive peripheral atelectasis. Recommend CT-guided biopsy which needs to be followed up outpatient. Note that pt also has moderate size hiatal hernia and was started on omeprazole. Her affect gradually presented as much brighter, much less paranoid. Much more interactive with peers and staff. She was visible on the unit, social with select peers and attended groups. Her ability to retain information and memory are impaired in addition to her shelter mental illness of schizophrenia. Pt was not disruptive nor required restraints wihle on the unit. Collateral information was gathered Time spent discussing smoking cessation with patient: 3 to 10 minutes Status at Discharge Cognitive/behavioral status at discharge: Impaired at baseline Functional status at discharge: independent ambulation Overall status at discharge: patient is back to baseline Time Spent with Patient Time attestation: Total time managing care of this patient today ____ minutes. Time spent: Less than 30 minutes Discharge Plan Discharge Anticipated Discharge Date/Time: 04/26/23 09:00 Patient Disposition: Home, Self-Care Discharge Diagnosis: schizophrenia Major neurocognitive disorder Referrals: Mark Anthony Curiel MD [Primary Care Provider] - 1 Week Discharge Medications: New amlodipine 2.5 mg Tablet 2.5 mg PO DAILY Qty: 0 0RF Protocol: Hold for SBP< HOLD for SBP < : 90 metoprolol tartrate 25 mg Tablet 25 mg PO BID Qty: 0 0RF Protocol: Hold for SBP/HR < HOLD for SBP < : 90 HOLD for HR < : 60 quetiapine 100 mg Tablet 100 mg PO BEDTIME Qty: 0 0RF mirtazapine 15 mg Tablet 15 mg PO BEDTIME Qty: 0 0RF risperidone 1 mg Tablet 1 mg PO BID Qty: 0 0RF omeprazole 20 mg Capsule,Delayed Release(Dr/Ec) 20 mg PO DAILY@0630 Qty: 0 0RF simethicone [Gas Relief (simethicone)] 80 mg Tablet,Chewable 160 mg PO Q4H PRN (Reason: Dyspepsia) Qty: 0 0RF Continued lamotrigine 150 mg Tablet 75 mg PO BID acetaminophen 325 mg Tablet 650 mg PO Q4H PRN (Reason: PAIN OR FEVER) divalproex [Depakote] 250 mg Tablet,Delayed Release (Dr/Ec) 250 mg PO BEDTIME pravastatin 40 mg Tablet 40 mg PO BEDTIME Lactobacillus acidophilus Capsule 1 cap PO DAILY cholecalciferol (vitamin D3) 25 mcg (1,000 unit) Tablet 25 mcg PO DAILY insulin glargine [Basaglar KwikPen U-100 Insulin] 100 unit/mL (3 mL) insulin pen 6 unit subcut BEDTIME Discontinued clonazepam 0.5 mg tablet 0.5 mg PO BEDTIME cephalexin 500 mg capsule 500 mg PO QID Rx Instructions: x 7 days, finished 04/18/23 trazodone 150 mg Tablet 150 mg PO BEDTIME diphenhydramine HCl 25 mg Tablet 12.5 mg PO TID simethicone 50 mg/5 mL Suspension 300 mg PO Q4H PRN (Reason: Dyspepsia) metoprolol succinate 25 mg Tablet Extended Release 24 Hr 25 mg PO DAILY quetiapine 50 mg tablet 150 mg PO BID Discharge Orders: Discharge Order (Routine); Ordered 04/26/23 Ordered By: Dafne Gary Diet: Diabetic diet Activity on Discharge: As tolerated Stand Alone Forms: Patient Portal Discharge page Care Plan Goals: 1. Maintain mood 2. No SI/HI 3. Less paranoia, less AH/VH Health Concerns: Pt needs to follow up with pulmonology regarding left upper lung nodule recommended guided CT biopsy. Plan of Treatment: 1. Take medications as prescribed 2. Go to nearest ED or call 911 in event of emergency Assessment: Pt with brighter affect, non labile. Much less paranoid delusions, no SI/HI. improved oral intake and sleep. No aggression towards self or others.
--- NOTE | 2023-04-26 13:55 | PC.NURSE ---
Pt. oriented to self only. Understands that she is going back where she came from , but unable to recall where that was. I like it here and I've met so many nice people. I was looking for some rest and relaxation and that's what I've been getting. Pt. unable to understand medication and discharge instructions and these were handed off to EMS to hand off to nursing facility staff. Pt. has been med compliant and eating and sleeping well. Her affect has been bright and she has been making eye contact and socializing with peers.
== END 2023-04-26 13:10 | disposition home or self-care (01) | DRG 885 ==
LOC: HO.ED 16:32 → HO.PGERI 04-14 14:31
PROVIDERS: Physician Assistant; Social Worker; Admitting Provider Psychiatry & Neurology Psychiatry; Emergency Provider Emergency Medicine; PCP Family Medicine Geriatric Medicine; Visit Provider Psychiatry & Neurology Psychiatry
DX: F25.9 Schizoaffective disorder, unspecified (principal); J98.11 Atelectasis; R94.31 Abnormal electrocardiogram [ECG] [EKG]; F03.90 Unspecified dementia, unspecified severity, without behavioral disturbance, psychotic disturbance, mood disturbance, and anxiety; R00.0 Tachycardia, unspecified; Z91.148 Patient's other noncompliance with medication regimen for other reason; Z20.822 Contact with and (suspected) exposure to COVID-19; Z91.040 Latex allergy status; Z79.899 Other long term (current) drug therapy
CPT/HCPCS: 36415; 71045; 71250; 80048; 80053; 80061; 80076; 80307; 81001; 82140; 82607; 82746; 82947; 83036; 83735; 84443; 84484; 85025; 87040; 87086; 87635; 93005; 99285; S9485

== ENCOUNTER → 2023-04-12 16:31 | Outpatient (BNV) | payer MEDICARE, MEDICAID, SELFPAY | PROVIDERS: Emergency Provider Emergency Medicine; PCP Family Medicine Geriatric Medicine; Visit Provider Social Worker | DX: F20.9 Schizophrenia, unspecified (principal); F02.80 Dementia in other diseases classified elsewhere, unspecified severity, without behavioral disturbance, psychotic disturbance, mood disturbance, and anxiety | CPT/HCPCS: 90792; 99231; 99232; 99238; 99285 ==